=== PATIENT | female | born 1955 | race Caucasian/White ===

== ENCOUNTER 2023-02-20 14:52 | Outpatient (REF) | payer MEDICARE, MEDICAID, SELFPAY ==
--- NOTE | ~2023-02-20 | XR_ITS ---
EXAMINATION: XR KNEE, BILATERAL CLINICAL INDICATIONS: Pain. COMPARISON: Bilateral knee 02/08/2014. TECHNIQUE: 3 views each knee. FINDINGS: RIGHT KNEE: There is mild reduction in the tricompartmental joint space without bony erosive changes or loose bodies. There is no joint effusion seen. There is a small anterior superior patellar enthesophyte. LEFT KNEE: There is mild reduction in the tricompartmental joint space both knees. There is no visible acute fracture, dislocation or subluxation seen. No abnormal joint effusion seen. There are no loose bodies identified. XR/XR knee RT 3V IMPRESSION: Interval mild tricompartmental degenerative changes of both knees. No loose bodies or joint effusion suspected.
--- NOTE | ~2023-02-20 | XR_ITS ---
EXAMINATION: XR KNEE, BILATERAL CLINICAL INDICATIONS: Pain. COMPARISON: Bilateral knee 02/08/2014. TECHNIQUE: 3 views each knee. FINDINGS: RIGHT KNEE: There is mild reduction in the tricompartmental joint space without bony erosive changes or loose bodies. There is no joint effusion seen. There is a small anterior superior patellar enthesophyte. LEFT KNEE: There is mild reduction in the tricompartmental joint space both knees. There is no visible acute fracture, dislocation or subluxation seen. No abnormal joint effusion seen. There are no loose bodies identified. XR/XR knee LT 3V IMPRESSION: Interval mild tricompartmental degenerative changes of both knees. No loose bodies or joint effusion suspected.
== END 2023-02-20 14:53 | disposition home or self-care (01) ==
LOC: HO.XRAY 14:52
PROVIDERS: Visit Provider Nurse Practitioner Family
DX: M25.561 Pain in right knee (principal); M25.562 Pain in left knee; G62.9 Polyneuropathy, unspecified; M54.16 Radiculopathy, lumbar region; M47.816 Spondylosis without myelopathy or radiculopathy, lumbar region
CPT/HCPCS: 73562; 99202

== ENCOUNTER → 2023-06-23 14:05 | Outpatient (BNVA) | payer MEDICARE, MEDICAID, SELFPAY | PROVIDERS: Visit Provider Nurse Practitioner Family | DX: M25.561 Pain in right knee (principal); M25.562 Pain in left knee; M54.16 Radiculopathy, lumbar region; M47.816 Spondylosis without myelopathy or radiculopathy, lumbar region; G62.9 Polyneuropathy, unspecified | CPT/HCPCS: 99212 ==

== ENCOUNTER 2023-06-23 14:06 | Outpatient (AMB) | payer MEDICARE, MEDICAID, SELFPAY ==
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
[2023-06-23 14:12] VITALS: BP 94/58; PULSE 59; O2SAT 96; BMI 19.7
== END 2023-06-23 14:28 | disposition home or self-care (01) ==
PROVIDERS: Visit Provider Nurse Practitioner Family
DX: M25.561 Pain in right knee (principal); M25.562 Pain in left knee; G62.9 Polyneuropathy, unspecified; M54.16 Radiculopathy, lumbar region; M47.816 Spondylosis without myelopathy or radiculopathy, lumbar region
CPT/HCPCS: 99214

== ENCOUNTER 2023-10-30 11:42 | Outpatient (AMB) | payer MEDICARE, MEDICAID, SELFPAY ==
--- NOTE | 2023-10-30 11:43 | MHC.OFFVIS ---
Intake Vital Signs 10/30/23 11:47 Height 5 ft 6.5 in Weight 124 lb BMI 19.7 BP 150/75 H Blood Pressure Location Lt brachial Position Sitting Pulse 64 Pulse Source Pulse Oximeter Pulse Oximetry (%) 98 Oxygen Delivery Method Room Air Intake Visit Reasons: FU/CRPS Intake Note: Pain today 05/01 Dental Resident Required: No Accompanied by: Family/Other Allergies tramadol [From ULTRAM] Allergy (Severe, Verified 10/30/23 11:48) NAUSEA/HALLUCINATIONS aspirin [ASPIRIN] Adverse Reaction (Mild, Verified 10/30/23 11:48) ULCERS HPI HPI Comments History of Present Illness Details Patient presents today for follow up for continued left sided radicular pain. She was last seen in our office in June 2023 with plans for left L4-L5, L5-S1 transforaminal CHAIM injection but this has been scheduled with patient as of yet. Patient's family reports patient's left low back pain has been significantly aggravated after she completed physical therapy at [facility]. She presents today with significant localized pain in the projection of her left sacroiliac joint area with positive provocative testing for left SIJ pain as well as increased pain with dorsiflexion and positive SLR testing on right with pain radiation into her posterior leg more than anterior leg. She also reports chronic right anterior knee pain with walking and climbing stairs. Patient is interested to undergo diagnostic left SIJ injection prior to epidural steroid injection. She also recently updated her lumbar spine MRI at [facility] and report is noted below. Denies any fever, abdominal or groin pain, foot drop, bladder or bowel incontinence or saddle anesthesia. PRIOR: Patient presents today for follow-up for chronic low back pain with left-sided radiculopathy. She was supposed to undergo therapeutic injections for her radicular symptoms in February but had to cancel injections due to a second degree burn in the area of the injection from heating pad per family. Patient presents today significant pain rated at 8/10. Her back pain radiates to the left side of the back, into her buttocks and down into her thigh and the lower extremities anteriorly and posteriorly. She reports paresthesias in her left outer calf and mendoza areas with tingling sensations in her left foot. Patient reports this happens intermittently. Her left posterior lateral wound is healing well. Family reports patient was recently discharged from [facility]. Denies any fever, weight loss, abdominal or groin pain, foot drop, bladder or bowel incontinence or saddle anesthesia. PRIOR: Patient is a 67 years old female presents today with chronic pain throughout body from neck to both of her legs. Reports being in pain for the past 15 years years and attributes this to herniated discs, bilateral knees CRPS, and neuropathy. 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 Patient reports history of tripping and falling on sidewalk on her knees in 2009. Denies any surgeries, procedures or injections. She sees Dr. Manrique for memory issues related to early Alzheimer?s, CRPS and peripheral neuropathy. Recently completed physical therapy for 3 months at [facility] without significant pain relief but has a mild function improvement. Her pain is localized to bilateral anterior knee, without specific joint line tenderness. There is no skin discoloration, temperature changes, no allodynia or hyperalgesia. There is mild localized tenderness with palpation. Patient also has dressing over left lower leg and head and multiple healed and open wounds from scratching her skin. Her back pain is mainly axial and also radiates to her left lower extremity posteriorly and into her left foot with numbness and tingling as well as weakness in the left lower extremity and positive SLR testing. Most recent lumbar spine MRI of 2019 is noted below. Denies any bladder or bowel incontinence or saddle anesthesia. Location Bilateral knee pain, widespread body pain, neck to bottom of legs Duration Chronic since 2009 Characteristics of symptom or complaint Throbbing, stabbing, sharp, hot burning, radiating, aching, heavy, sore Aggravating or associated factors Movements, weather changes, walking, climbing stairs Relieving factors Cold and heat therapy, duloxetine, gabapentine, pregabalin Treatment Multiple medications, PT at [facility] x3 months-no relief PFSH Medical History Osteoporosis GERD (gastroesophageal reflux disease) Palpitations Mitral valve prolapse Prurigo nodularis Leukopenia Mild cognitive impairment Chronic neck pain Cervical herniated disc Lumbar herniated disc Tachycardia Complex regional pain syndrome I Insomnia Anxiety and depression Alzheimer disease CRPS (complex regional pain syndrome type I) Peripheral neuropathy Surgical History Hx of lymph node excision Hx of hand surgery H/O colonoscopy Social History Household Members Other:: sister & family Are you a primary health care administrator to a significant other at home: No Do you presently have visiting nurse or other home services: Yes ([facility] Foster [facility] Program-sister is her caregiver) Alcohol intake: never Patient Tobacco Use Status: Never used Tobacco Review of Systems Const All systems reviewed & are unremarkable except as noted in HPI and below Physical Exam General: Appears afebrile. Alert and oriented. Forgetful. Mood and affect appropriate. Follows and participates in conversation appropriately. Respiratory effort is unlabored. No cough. Able to transition from sit to stand with assistance from family member. Reports using cane at home. Back/Spine/Pelvis Other: Limit lumbar ROM due to pain with difficulty standing on heels or toes on left side due to sensation of imbalance. Antalgic gait, with limping. Demonstrates 5/5 right and 4/5 left strength of quadriceps bilaterally as well as flexion/dorsiflexion of bilateral feet against resistance. 2+ pedal pulses bilaterally. Seated straight leg rise with dorsiflexion positive on the left. Diminished patellar and trace achilles reflexes bilaterally. Facet loading test positive bilaterally. Shane?s, Gaenslen, Pelvic compression and Stinchfield tests are positive on the left. No groin pain with I/E hip rotations. Cervical Spine: cervical ROM normal and No Cervical spine tenderness Thoracic/Lumbar Spine: thoracic and lumbar spine normal to inspection, No Thoracic/lumbar spine scar(s), Lasegue's sign positive on the left and localized, pain with thoraco-lumbar ROM, paraspinal muscle tenderness, thoraco-lumbar ROM limited, No thoracic spinal tenderness and lumbar spinal tenderness at L4 and at L5 Pelvis: buttock tenderness (upper buttock into left lateral hip) on the left Sacroiliac joints: on the right nontender and on the left tender to palpation Skin Other: Left latero-posterior hip with healing burn scarring, redness noted but no erythema, infection or open wounds. Extrem Other: Bilateral knees: left knee and lower leg dressed with KEEGAN wrap dressing, clean and dry. Right lower leg with healing scabs. Localized TTP to anterior aspects of both knees. Results Reviewed Results Reviewed: XR KNEE, BILATERAL 02/20/23 COMPARISON: Bilateral knee 02/08/2014. TECHNIQUE: 3 views each knee. FINDINGS: RIGHT KNEE: There is mild reduction in the tricompartmental joint space without bony erosive changes or loose bodies. There is no joint effusion seen. There is a small anterior superior patellar enthesophyte. LEFT KNEE: There is mild reduction in the tricompartmental joint space both knees. There is no visible acute fracture, dislocation or subluxation seen. No abnormal joint effusion seen. There are no loose bodies identified. IMPRESSION: Interval mild tricompartmental degenerative changes of both knees. No loose bodies or joint effusion suspected. MR LUMBAR SPINE WITHOUT AND WITH CONTRAST 07/29/2019 CLINICAL INFORMATION: Chronic lower back pain. Bilateral lower extremity pain and weakness reported. Numbness. Chronic symptoms. No history of spinal surgery. TECHNICAL INFORMATION: Sagittal T1-weighted, sagittal T2-weighted, sagittal STIR lumbar spine imaging. Axial T1 and axial T2-weighted imaging of the lumbar spine. Postgadolinium T1-weighted lumbar spine imaging. 14 mL of intravenous Dotarem were administered. Imaging performed in the open magnet operating at 1.2 Perla magnetic field strength. INTERPRETATION: There is degenerative decreased water content of lower thoracic and lumbar intervertebral discs. The conus medullaris is normal. There are no lumbar vertebral body compression fractures. There is straightening of the lumbar lordotic curvature. T12-L1 level: Small posterior disc bulge with mild compression of the thecal sac. Mild degenerative narrowing of neural foramina. L1-L2 level: Minimal posterior disc bulge. Mild facet arthropathy. Mild neural foraminal narrowing. L2-L3 through L5-S1 intervertebral disc spaces demonstrate moderate to severe loss of height. L2-L3 level: Small to moderate broad-based posterior disc bulge with mild compression of the thecal sac. Mild facet arthropathy. Mild to moderate neural foraminal narrowing. L3-L4 level: Small posterior and right paramedian broad-based intervertebral disc herniation with slight caudad extrusion of herniated disc material within the right ventral epidural tissues to the level of superior L4 vertebral endplate with mild to moderate compression of the thecal sac. Mild degenerative central spinal canal stenosis. Moderate bilateral neural foraminal narrowing with compression of exiting right L3 nerve root and encroachment upon exiting left L3 nerve root. L4-L5 level: Residual disc demonstrates small broad-based posterior disc protrusion with mild to moderate impression upon the thecal sac. Protruding disc extends into the inferior aspect of the neural foramina. Moderate facet arthropathy with mild to moderate central spinal canal stenosis. Moderate left lateral recess narrowing with encroachment upon proximal left L5 nerve root sleeve. Severe left neural foraminal narrowing with encroachment upon exiting left L4 nerve root. Moderate right neural foraminal narrowing. L5-S1 level: Residual disc demonstrates moderate broad-based posterior disc protrusion with mild compression of the thecal sac. Moderate severe facet arthropathy with mild central spinal canal stenosis. Moderate narrowing of lateral recesses with encroachment upon proximal S1 nerve root sleeves. Severe bilateral neural foraminal degenerative narrowing with bilateral compression of exiting L5 nerve roots. Note is made of minimal ventral enhancing epidural scarring at L2-L3 through L5-S1 levels. No abnormal enhancement seen within the lumbar thecal sac. No evidence of adhesive lumbar arachnoiditis. Note is made of mild reactive-degenerative bone marrow edema of L3-S1 vertebral bodies. There is mild reactive-degenerative bone marrow edema of right L4 pedicle and bilateral L5 pedicles. No evidence of lumbar spondylolysis. CONCLUSION: Moderate lumbar spondylosis with multilevel loss of intervertebral disc space height, moderate multilevel facet arthropathy with multilevel mild central spinal canal stenosis and neural foraminal narrowing. L5-S1 level: Moderate posterior disc protrusion. Mild central spinal canal stenosis. Moderate narrowing of lateral recesses. Severe neural foraminal narrowing. L4-5 level: Small posterior disc protrusion which extends into the inferior aspect of the neural foramina. Mild to moderate central spinal canal stenosis. Moderate left lateral recess narrowing. Severe left and moderate right neural foraminal narrowing. L3-L4 level: Small posterior and right paramedian broad-based posterior intervertebral disc herniation with slight paramedian caudally extrusion of disc material with mild compression of the ventral thecal sac. Mild degenerative central spinal canal stenosis. Moderate neural foraminal narrowing. Additional findings, as described. MR SPINE LUMBAR without CONTRAST 09/21/23 at [facility] INDICATION: Severe left buttock pain for 8 months. Status post physical therapy. History of HNP in back. TECHNIQUE: Unenhanced multiplanar, multisequence MR imaging of the lumbar spine. COMPARISON: MR L-Spine 07/29/2019. FINDINGS: There is a mild lower lumbar levoscoliotic curvature. No findings of lumbar fracture or listhesis. Vertebral bodies are of normal height. Endplate Modic type changes with loss of intervertebral disc space height throughout and marginal osteophyte formation. Lumbar facet arthrosis. Conus and cauda equina of normal appearance. No acute paraspinal abnormality identified. Examination through the L1-L2 intervertebral level revealing mild facet arthrosis. Prominence of ligamentum flavum. Posterior disc osteophyte. Mild central stenosis. Bilateral lateral recess encroachment. No significant foraminal narrowing. Examination through the L2-L3 intervertebral level revealing facet arthrosis. Prominence of ligamentum flavum. Posterior disc osteophyte. Mild central stenosis. Bilateral lateral recess encroachment. Moderate RIGHT foraminal narrowing. Mild LEFT foraminal narrowing. Examination through the L3-L4 intervertebral level revealing facet arthrosis. Prominence of ligamentum flavum. Posterior disc osteophyte with a RIGHT paracentral predominance. Mild central stenosis. Bilateral lateral recess encroachment. Moderate to severe bilateral foraminal narrowing. Examination through the L4-L5 intervertebral level revealing facet arthrosis. Prominence of ligament flavum and posterior disc osteophyte. Mild central stenosis. Bilateral lateral recess encroachment. Moderate RIGHT foraminal narrowing. Moderate to severe LEFT foraminal narrowing. Examination through the L5-S1 intervertebral level facet arthrosis. Mild prominence of ligamentum flavum. Small posterior disc osteophyte. No significant central stenosis. Bilateral lateral recess encroachment. Severe bilateral foraminal narrowing. IMPRESSION: Lumbar spondylotic changes and facet arthrosis. No findings of fracture or significant listhesis. Varying degrees of relative chronic appearing central stenosis and foraminal narrowing as detailed above. No findings to suggest an acute process. No priors are available for comparison. Assessment & Plan Assessment & Plan (1) Bilateral knee pain: Code(s): M25.561 - Pain in right knee; M25.562 - Pain in left knee (2) Lumbar radiculopathy: Code(s): M54.16 - Radiculopathy, lumbar region (3) Lumbar spondylosis: Code(s): M47.816 - Spondylosis without myelopathy or radiculopathy, lumbar region (4) Sacroiliac joint pain: Code(s): M53.3 - Sacrococcygeal disorders, not elsewhere classified Plan Schedule Left diagnostic sacroiliac joint injection with local and fluoroscopy for left SIJ pain. If no relief, will proceed with Left L4-L5, L5-S1 TFESI with sedation and fluoroscopy for ongoing left sided radicular pain. Recent lumbar spine MRI results reviewed with patient and her family today. All questions and concerns have been answered and patient agreed with the plan. Follow up after injections and sooner if needed. Anticoagulation: Patient not on anticoagulant Justification for interventional therapy: ? Patient with average pain > 6/10 ? Patient has exhausted conservative therapy, Tylenol, physical therapy at [facility] ? Patient continuing home exercise program The risks, consequences, alternatives, and benefits of various treatment options were discussed with the patient in great detail, including conservative management, injections and procedures. Coding Level of Care Code Est Pt Level 4 (05315) Diagnoses Bilateral knee pain M25.561; M25.562 Lumbar radiculopathy M54.16 Lumbar spondylosis M47.816 Sacroiliac joint pain M53.3
[2023-10-30 11:47] VITALS: BP 150/75; PULSE 64; O2SAT 98; BMI 19.7
== END 2023-10-30 12:12 | disposition home or self-care (01) ==
PROVIDERS: Visit Provider Nurse Practitioner Family
DX: M25.561 Pain in right knee (principal); M25.562 Pain in left knee; M54.16 Radiculopathy, lumbar region; M47.816 Spondylosis without myelopathy or radiculopathy, lumbar region; M53.3 Sacrococcygeal disorders, not elsewhere classified
CPT/HCPCS: 99214

== ENCOUNTER → 2023-10-30 11:42 | Outpatient (BNVA) | payer MEDICARE, MEDICAID, SELFPAY | PROVIDERS: Visit Provider Nurse Practitioner Family | DX: M25.561 Pain in right knee (principal); M25.562 Pain in left knee; M54.16 Radiculopathy, lumbar region; M47.816 Spondylosis without myelopathy or radiculopathy, lumbar region; M53.3 Sacrococcygeal disorders, not elsewhere classified | CPT/HCPCS: 99212 ==

== ENCOUNTER 2023-11-14 06:17 | Outpatient (REF) | payer MEDICARE, MEDICAID, SELFPAY ==
--- NOTE | ~2023-11-14 | FL_ITS ---
EXAMINATION: XR FLUOROSCOPY WITH IMAGES CLINICAL INFORMATION: Sacrococcygeal disorders, left side. COMPARISON: None available. TECHNIQUE: Fluoroscopy Supervised By: Dasia Tomlin APRN CNP. Fluoroscopy Time: 0.1 min. Cumulative Dose: 1.03 mGy. DAP: 0.0179 mGy cm2. Images: 1. FINDINGS: Single image demonstrates a needle near the mid SI joint with contrast surrounding the region. FL/FL guidance in treatment room IMPRESSION: Fluoroscopy provided for pain management procedure.
== END 2023-11-14 06:18 | disposition home or self-care (01) ==
LOC: CF 06:17
PROVIDERS: Visit Provider Anesthesiology
DX: M53.3 Sacrococcygeal disorders, not elsewhere classified (principal); M54.16 Radiculopathy, lumbar region; M47.816 Spondylosis without myelopathy or radiculopathy, lumbar region; M25.561 Pain in right knee; M25.562 Pain in left knee
CPT/HCPCS: 27096; J2795; Q9967

== ENCOUNTER 2023-11-14 14:14 | Outpatient (AMB) | payer MEDICARE, MEDICAID, SELFPAY ==
--- NOTE | 2023-11-14 14:26 | A.OFFVIS_ITS ---
Intake Vital Signs 11/14/23 15:47 11/14/23 15:47 Height 5 ft 6.5 in 5 ft 6.5 in Weight 124 lb 124 lb BMI 19.7 19.7 BP 92/58 L 96/56 L Blood Pressure Location Lt brachial Lt brachial Position Sitting Sitting Respiration 12 12 Pulse 60 60 Pulse Source Pulse Oximeter Pulse Oximeter Pulse Oximetry (%) 94 100 Oxygen Delivery Method Room Air Room Air Comment pre-op post-op Intake Visit Reasons: LEFT DIAGNOSTIC SIJ INJECTION Allergies tramadol [From ULTRAM] Allergy (Severe, Verified 11/14/23 15:48) NAUSEA/HALLUCINATIONS aspirin [ASPIRIN] Adverse Reaction (Mild, Verified 11/14/23 15:48) ULCERS PFSH Medical History Osteoporosis GERD (gastroesophageal reflux disease) Palpitations Mitral valve prolapse Prurigo nodularis Leukopenia Mild cognitive impairment Chronic neck pain Cervical herniated disc Lumbar herniated disc Tachycardia Complex regional pain syndrome I Insomnia Anxiety and depression Alzheimer disease CRPS (complex regional pain syndrome type I) Peripheral neuropathy Surgical History Hx of lymph node excision Hx of hand surgery H/O colonoscopy Social History Household Members Other:: sister & family Are you a primary workforce investment act career manager to a significant other at home: No Do you presently have visiting nurse or other home services: Yes (Adult Foster Care Program-sister is her caregiver) Alcohol intake: never Patient Tobacco Use Status: Never used Tobacco Physical Exam Vital Signs: Last Vital Signs Pulse 60 11/14/23 15:47 Resp 12 11/14/23 15:47 BP 96/56 L 11/14/23 15:47 Pulse Ox 100 11/14/23 15:47 Oxygen Delivery Method Room Air 11/14/23 15:47 BMI result Body Mass Index 19.7 Assessment & Plan Assessment & Plan (1) Bilateral knee pain: Code(s): M25.561 - Pain in right knee; M25.562 - Pain in left knee (2) Lumbar radiculopathy: Code(s): M54.16 - Radiculopathy, lumbar region Plan: Left diagnostic Sacroiliac joint injection Informed consent was explained thoroughly to the patient.? All questions about benefits and risks for the procedure were answered. Patient came to the operating room and was positioned prone on the operating table with the pillow under the pelvis.? The lower back and buttocks of the patient were prepped with ChloraPrep prepped and draped with sterile utility towels.? Sterilely draped C-arm was brought over the operating field and sq picture of patient's pelvis was demonstrated on the screen.? For the left joint tilting C-arm contralateral to the site of the joint the most posterior portion of the joints was superimposed with anterior silhouette of the joint.? Skin was injected in the projection of the joint slightly medial to the location of the joint with 25 gauge 1/2 inch needle using local lidocaine 2% . After that 22 gauge 3 and 1/2 inch needle was driven to the left joint in tunnel vision fashion.? When needle entered the joint capsule injection of the contrast was performed demonstrating intra-articular and minimally periarticular spread of the contrast.? After that 5 cc. of ropivacaine 0.5% was injected into each joint.? Upon completion of the injections the needles were removed . Sterile dressing was applied.? Upon completion of the injection patient was taken outside of the operating room to the recovery room where recovered uneventfully. (3) Lumbar spondylosis: Code(s): M47.816 - Spondylosis without myelopathy or radiculopathy, lumbar region (4) Sacroiliac joint pain: Code(s): M53.3 - Sacrococcygeal disorders, not elsewhere classified Plan Schedule Left diagnostic sacroiliac joint injection with local and fluoroscopy for left SIJ pain. If no relief, will proceed with Left L4-L5, L5-S1 TFESI with sedation and fluoroscopy for ongoing left sided radicular pain. Recent lumbar spine MRI results reviewed with patient and her family today. All questions and concerns have been answered and patient agreed with the plan. Follow up after injections and sooner if needed. Anticoagulation: Patient not on anticoagulant Justification for interventional therapy: ? Patient with average pain > 6/10 ? Patient has exhausted conservative therapy, Tylenol, physical therapy at [facility] ? Patient continuing home exercise program The risks, consequences, alternatives, and benefits of various treatment options were discussed with the patient in great detail, including conservative management, injections and procedures. Orders: Orders FL guidance in treatment room 11/14/23 M53.3 - Sacrococcygeal disorders, not elsewhere classified Coding Level of Care Code Procedure Only Diagnoses Bilateral knee pain M25.561; M25.562 Lumbar radiculopathy M54.16 Lumbar spondylosis M47.816 Sacroiliac joint pain M53.3
[2023-11-14 15:47] VITALS: BP 92/58; BP 96/56; PULSE 60; RESP 12; O2SAT 100; O2SAT 94; BMI 19.7
== END 2023-11-14 15:10 | disposition home or self-care (01) ==
LOC: HO.PMCPRC 14:14
PROVIDERS: Visit Provider Anesthesiology
DX: M53.3 Sacrococcygeal disorders, not elsewhere classified (principal); M25.561 Pain in right knee; M25.562 Pain in left knee; M54.16 Radiculopathy, lumbar region; M47.816 Spondylosis without myelopathy or radiculopathy, lumbar region
CPT/HCPCS: 27096

== ENCOUNTER 2023-11-21 13:01 | Outpatient (AMB) | payer MEDICARE, MEDICAID, SELFPAY ==
--- NOTE | 2023-11-21 13:03 | MHC.OFFVIS ---
Intake Vital Signs 11/21/23 13:07 Height 5 ft 6.5 in Weight 125 lb 3 oz BMI 19.9 BP 93/51 L Blood Pressure Location Lt brachial Position Sitting Pulse 80 Pulse Source Pulse Oximeter Pulse Oximetry (%) 97 Oxygen Delivery Method Room Air Intake Visit Reasons: LEFT DIAGNOSTIC SIJ INJECTION/11/14/23 Intake Note: Pain today 06/01 Human Resources Manager Required: No Accompanied by: Family/Other Allergies tramadol [From ULTRAM] Allergy (Severe, Verified 11/21/23 13:08) NAUSEA/HALLUCINATIONS aspirin [ASPIRIN] Adverse Reaction (Mild, Verified 11/21/23 13:08) ULCERS HPI HPI Comments History of Present Illness Details Patient presents today to assess response to Left Diagnostic Sacroiliac Joint Injection on 11/14/[address] Cho. Patient reports no pain relief following the procedure. Patient reports chronic left buttock pain and reports soreness in the vicinity of the left piriformis muscle. She reports this started last January 2023 after intense physical therapy. Family reports patient was in basiline pain after procedure and had no relief with SIJ injection. She is sitting on cushion relief pad and offloading her left buttock by crossing over her left leg over right leg. Family reports patient spends significant time at home sitting and minimal ambulation due to chronic low back and bilateral knee pain. We will proceed with piriformis injection as next steps. Denies any recent cough, cold, infection, fever, any significant changes in her medical history, medications or recent hospitalizations. Past Procedures: 11/14/23: Left Diagnostic Sacroiliac Joint Injection- no pain relief PRIOR: Patient presents today for follow up for continued left sided radicular pain. She was last seen in our office in June 2023 with plans for left L4-L5, L5-S1 transforaminal CHAIM injection but this has been scheduled with patient as of yet. Patient's family reports patient's left low back pain has been significantly aggravated after she completed physical therapy at [facility]. She presents today with significant localized pain in the projection of her left sacroiliac joint area with positive provocative testing for left SIJ pain as well as increased pain with dorsiflexion and positive SLR testing on right with pain radiation into her posterior leg more than anterior leg. She also reports chronic right anterior knee pain with walking and climbing stairs. Patient is interested to undergo diagnostic left SIJ injection prior to epidural steroid injection. She also recently updated her lumbar spine MRI at [facility] and report is noted below. Denies any fever, abdominal or groin pain, foot drop, bladder or bowel incontinence or saddle anesthesia. PRIOR: Patient presents today for follow-up for chronic low back pain with left-sided radiculopathy. She was supposed to undergo therapeutic injections for her radicular symptoms in February but had to cancel injections due to a second degree burn in the area of the injection from heating pad per family. Patient presents today significant pain rated at 8/10. Her back pain radiates to the left side of the back, into her buttocks and down into her thigh and the lower extremities anteriorly and posteriorly. She reports paresthesias in her left outer calf and mendoza areas with tingling sensations in her left foot. Patient reports this happens intermittently. Her left posterior lateral wound is healing well. Family reports patient was recently discharged from [facility]. Denies any fever, weight loss, abdominal or groin pain, foot drop, bladder or bowel incontinence or saddle anesthesia. PRIOR: Patient is a 67 years old female presents today with chronic pain throughout body from neck to both of her legs. Reports being in pain for the past 15 years years and attributes this to herniated discs, bilateral knees CRPS, and neuropathy. 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 Patient reports history of tripping and falling on sidewalk on her knees in 2009. Denies any surgeries, procedures or injections. She sees Dr. Manrique for memory issues related to early Alzheimer?s, CRPS and peripheral neuropathy. Recently completed physical therapy for 3 months at [facility] without significant pain relief but has a mild function improvement. Her pain is localized to bilateral anterior knee, without specific joint line tenderness. There is no skin discoloration, temperature changes, no allodynia or hyperalgesia. There is mild localized tenderness with palpation. Patient also has dressing over left lower leg and head and multiple healed and open wounds from scratching her skin. Her back pain is mainly axial and also radiates to her left lower extremity posteriorly and into her left foot with numbness and tingling as well as weakness in the left lower extremity and positive SLR testing. Most recent lumbar spine MRI of 2019 is noted below. Denies any bladder or bowel incontinence or saddle anesthesia. Location Bilateral knee pain, widespread body pain, neck to bottom of legs Duration Chronic since 2009 Characteristics of symptom or complaint Throbbing, stabbing, sharp, hot burning, radiating, aching, heavy, sore Aggravating or associated factors Movements, weather changes, walking, climbing stairs Relieving factors Cold and heat therapy, duloxetine, gabapentine, pregabalin Treatment Multiple medications, PT at [facility] x3 months-no relief PFSH Medical History Osteoporosis GERD (gastroesophageal reflux disease) Palpitations Mitral valve prolapse Prurigo nodularis Leukopenia Mild cognitive impairment Chronic neck pain Cervical herniated disc Lumbar herniated disc Tachycardia Complex regional pain syndrome I Insomnia Anxiety and depression Alzheimer disease CRPS (complex regional pain syndrome type I) Peripheral neuropathy Surgical History Hx of lymph node excision Hx of hand surgery H/O colonoscopy Social History Household Members Other:: sister & family Are you a primary personal care assistant to a significant other at home: No Do you presently have visiting nurse or other home services: Yes ([facility]-sister is her caregiver) Alcohol intake: never Patient Tobacco Use Status: Never used Tobacco Review of Systems Const All systems reviewed & are unremarkable except as noted in HPI and below Reports as per HPI, Denies body aches, Denies chills, Denies fever(s), Denies frequent falls, Denies headache(s), Denies malaise, Denies weakness and Denies weight loss ENT Denies vertigo, Denies headache(s), Denies neck pain and Denies sore throat Card Denies chest pain with activity, Denies syncope, Denies irregular heart rhythm, Denies lightheadedness and Denies dyspnea Resp Denies cough and Denies dyspnea GI Denies abdominal pain, Denies fecal incontinence and Denies nausea Reports urinary incontinence Musc Reports as per HPI, Reports back pain, Denies myalgias, Reports arthralgias, Denies neck pain, Reports numbness, Reports stiffness and Reports tingling Neuro Denies vertigo, Denies syncope, Denies frequent falls, Denies headache(s), Reports numbness, Reports tingling and Denies weakness Physical Exam Vital Signs: Last Vital Signs Pulse 80 11/21/23 13:07 BP 93/51 L 11/21/23 13:07 Pulse Ox 97 11/21/23 13:07 Oxygen Delivery Method Room Air 11/21/23 13:07 BMI result Body Mass Index 19.9 General: Appears afebrile. Alert and oriented. Forgetful. Mood and affect appropriate. Follows and participates in conversation appropriately. Respiratory effort is unlabored. No cough. Able to transition from sit to stand with assistance from family member. Uses cane with ambulation. Back/Spine/Pelvis Other: Limit lumbar ROM due to pain with difficulty standing on heels or toes on left side due to pain. Patient is sitting with left leg crossing over right leg and offloading her left buttock and uses cushion pillow for sitting. Mild tenderness to palpation in the left buttock. Reports soreness in the vicinity of the left piriformis muscle. Demonstrates 5/5 right and 4/5 left strength of quadriceps bilaterally as well as flexion/dorsiflexion of bilateral feet against resistance. 2+ pedal pulses bilaterally. Seated straight leg rise with dorsiflexion positive on the left. Diminished patellar and trace achilles reflexes bilaterally. Facet loading test positive bilaterally. No groin pain with I/E hip rotations. Cervical Spine: cervical ROM normal and No Cervical spine tenderness Thoracic/Lumbar Spine: thoracic and lumbar spine normal to inspection, No Thoracic/lumbar spine scar(s), Lasegue's sign positive on the left and localized, pain with thoraco-lumbar ROM, paraspinal muscle tenderness, thoraco-lumbar ROM limited, No thoracic spinal tenderness and lumbar spinal tenderness at L4 and at L5 Pelvis: buttock tenderness (upper buttock into left lateral hip) on the left Sacroiliac joints: on the right nontender and on the left (+Shane's test) tender to palpation Results Reviewed Results Reviewed: XR KNEE, BILATERAL 02/20/23 COMPARISON: Bilateral knee 02/08/2014. TECHNIQUE: 3 views each knee. FINDINGS: RIGHT KNEE: There is mild reduction in the tricompartmental joint space without bony erosive changes or loose bodies. There is no joint effusion seen. There is a small anterior superior patellar enthesophyte. LEFT KNEE: There is mild reduction in the tricompartmental joint space both knees. There is no visible acute fracture, dislocation or subluxation seen. No abnormal joint effusion seen. There are no loose bodies identified. IMPRESSION: Interval mild tricompartmental degenerative changes of both knees. No loose bodies or joint effusion suspected. MR LUMBAR SPINE WITHOUT AND WITH CONTRAST 07/29/2019 CLINICAL INFORMATION: Chronic lower back pain. Bilateral lower extremity pain and weakness reported. Numbness. Chronic symptoms. No history of spinal surgery. TECHNICAL INFORMATION: Sagittal T1-weighted, sagittal T2-weighted, sagittal STIR lumbar spine imaging. Axial T1 and axial T2-weighted imaging of the lumbar spine. Postgadolinium T1-weighted lumbar spine imaging. 14 mL of intravenous Dotarem were administered. Imaging performed in the open magnet operating at 1.2 Perla magnetic field strength. INTERPRETATION: There is degenerative decreased water content of lower thoracic and lumbar intervertebral discs. The conus medullaris is normal. There are no lumbar vertebral body compression fractures. There is straightening of the lumbar lordotic curvature. T12-L1 level: Small posterior disc bulge with mild compression of the thecal sac. Mild degenerative narrowing of neural foramina. L1-L2 level: Minimal posterior disc bulge. Mild facet arthropathy. Mild neural foraminal narrowing. L2-L3 through L5-S1 intervertebral disc spaces demonstrate moderate to severe loss of height. L2-L3 level: Small to moderate broad-based posterior disc bulge with mild compression of the thecal sac. Mild facet arthropathy. Mild to moderate neural foraminal narrowing. L3-L4 level: Small posterior and right paramedian broad-based intervertebral disc herniation with slight caudad extrusion of herniated disc material within the right ventral epidural tissues to the level of superior L4 vertebral endplate with mild to moderate compression of the thecal sac. Mild degenerative central spinal canal stenosis. Moderate bilateral neural foraminal narrowing with compression of exiting right L3 nerve root and encroachment upon exiting left L3 nerve root. L4-L5 level: Residual disc demonstrates small broad-based posterior disc protrusion with mild to moderate impression upon the thecal sac. Protruding disc extends into the inferior aspect of the neural foramina. Moderate facet arthropathy with mild to moderate central spinal canal stenosis. Moderate left lateral recess narrowing with encroachment upon proximal left L5 nerve root sleeve. Severe left neural foraminal narrowing with encroachment upon exiting left L4 nerve root. Moderate right neural foraminal narrowing. L5-S1 level: Residual disc demonstrates moderate broad-based posterior disc protrusion with mild compression of the thecal sac. Moderate severe facet arthropathy with mild central spinal canal stenosis. Moderate narrowing of lateral recesses with encroachment upon proximal S1 nerve root sleeves. Severe bilateral neural foraminal degenerative narrowing with bilateral compression of exiting L5 nerve roots. Note is made of minimal ventral enhancing epidural scarring at L2-L3 through L5-S1 levels. No abnormal enhancement seen within the lumbar thecal sac. No evidence of adhesive lumbar arachnoiditis. Note is made of mild reactive-degenerative bone marrow edema of L3-S1 vertebral bodies. There is mild reactive-degenerative bone marrow edema of right L4 pedicle and bilateral L5 pedicles. No evidence of lumbar spondylolysis. CONCLUSION: Moderate lumbar spondylosis with multilevel loss of intervertebral disc space height, moderate multilevel facet arthropathy with multilevel mild central spinal canal stenosis and neural foraminal narrowing. L5-S1 level: Moderate posterior disc protrusion. Mild central spinal canal stenosis. Moderate narrowing of lateral recesses. Severe neural foraminal narrowing. L4-5 level: Small posterior disc protrusion which extends into the inferior aspect of the neural foramina. Mild to moderate central spinal canal stenosis. Moderate left lateral recess narrowing. Severe left and moderate right neural foraminal narrowing. L3-L4 level: Small posterior and right paramedian broad-based posterior intervertebral disc herniation with slight paramedian caudally extrusion of disc material with mild compression of the ventral thecal sac. Mild degenerative central spinal canal stenosis. Moderate neural foraminal narrowing. Additional findings, as described. MR SPINE LUMBAR without CONTRAST 09/21/23 at [facility] INDICATION: Severe left buttock pain for 8 months. Status post physical therapy. History of HNP in back. TECHNIQUE: Unenhanced multiplanar, multisequence MR imaging of the lumbar spine. COMPARISON: MR L-Spine 07/29/2019. FINDINGS: There is a mild lower lumbar levoscoliotic curvature. No findings of lumbar fracture or listhesis. Vertebral bodies are of normal height. Endplate Modic type changes with loss of intervertebral disc space height throughout and marginal osteophyte formation. Lumbar facet arthrosis. Conus and cauda equina of normal appearance. No acute paraspinal abnormality identified. Examination through the L1-L2 intervertebral level revealing mild facet arthrosis. Prominence of ligamentum flavum. Posterior disc osteophyte. Mild central stenosis. Bilateral lateral recess encroachment. No significant foraminal narrowing. Examination through the L2-L3 intervertebral level revealing facet arthrosis. Prominence of ligamentum flavum. Posterior disc osteophyte. Mild central stenosis. Bilateral lateral recess encroachment. Moderate RIGHT foraminal narrowing. Mild LEFT foraminal narrowing. Examination through the L3-L4 intervertebral level revealing facet arthrosis. Prominence of ligamentum flavum. Posterior disc osteophyte with a RIGHT paracentral predominance. Mild central stenosis. Bilateral lateral recess encroachment. Moderate to severe bilateral foraminal narrowing. Examination through the L4-L5 intervertebral level revealing facet arthrosis. Prominence of ligament flavum and posterior disc osteophyte. Mild central stenosis. Bilateral lateral recess encroachment. Moderate RIGHT foraminal narrowing. Moderate to severe LEFT foraminal narrowing. Examination through the L5-S1 intervertebral level facet arthrosis. Mild prominence of ligamentum flavum. Small posterior disc osteophyte. No significant central stenosis. Bilateral lateral recess encroachment. Severe bilateral foraminal narrowing. IMPRESSION: Lumbar spondylotic changes and facet arthrosis. No findings of fracture or significant listhesis. Varying degrees of relative chronic appearing central stenosis and foraminal narrowing as detailed above. No findings to suggest an acute process. No priors are available for comparison. Assessment & Plan Assessment & Plan (1) Lumbar radiculopathy: Code(s): M54.16 - Radiculopathy, lumbar region (2) Piriformis syndrome of left side: Code(s): G57.02 - Lesion of sciatic nerve, left lower limb (3) Lumbar spondylosis: Code(s): M47.816 - Spondylosis without myelopathy or radiculopathy, lumbar region (4) Sacroiliac joint pain: Code(s): M53.3 - Sacrococcygeal disorders, not elsewhere classified Plan Schedule left diagnostic piriformis injection with local and US guidance. If no relief, will proceed with left diagnostic cluneal nerve injection for persistent left buttock pain unrelieved with cushion relief support, Tylenol, pregabalin and gabapentin. Patient also has left sided radicular pain. We will re-assess her low back and radicular symptoms after piriformis injection. Short script sent for oxycodone, side effects and precautions discussed with patient and her daughter who lives with patient and takes care of patient. Patient instructed to use half tab at the time for moderate-severe pain only. Discussed with the patient and family the risks associated with her other medications that have sedative effects and opioid use. Patient and family are aware and verbalized an agreement to take medications at least two hours apart. All questions and concerns have been answered and patient agreed with the plan. Follow up after injections and sooner if needed. Anticoagulation: Patient is not on anticoagulant Justification for interventional therapy: ? Patient with average pain > 6/10 ? Patient has exhausted conservative therapy, oral medication, physical therapy at [facility] ? Patient continuing home exercise program The risks, consequences, alternatives, and benefits of various treatment options were discussed with the patient in great detail, including conservative management, injections and procedures. Medications: New oxycodone Partial Fill upon patient request. 5 mg PO BID 7 days PRN 14 tabs 0RF pain G57.02 - Lesion of sciatic nerve, left lower limb, M54.16 - Radiculopathy, lumbar region Coding Level of Care Code Est Pt Level 4 (70657) Diagnoses Lumbar radiculopathy M54.16 Piriformis syndrome of left side G57.02 Lumbar spondylosis M47.816 Sacroiliac joint pain M53.3
[2023-11-21 13:07] VITALS: BP 93/51; PULSE 80; O2SAT 97; BMI 19.9
== END 2023-11-21 13:41 | disposition home or self-care (01) ==
PROVIDERS: Visit Provider Nurse Practitioner Family
DX: G57.02 Lesion of sciatic nerve, left lower limb (principal); M47.26 Other spondylosis with radiculopathy, lumbar region; M53.3 Sacrococcygeal disorders, not elsewhere classified
CPT/HCPCS: 99214

== ENCOUNTER → 2023-11-21 13:01 | Outpatient (BNVA) | payer MEDICARE, MEDICAID, SELFPAY | PROVIDERS: Visit Provider Nurse Practitioner Family | DX: M47.26 Other spondylosis with radiculopathy, lumbar region (principal); G57.02 Lesion of sciatic nerve, left lower limb; M53.3 Sacrococcygeal disorders, not elsewhere classified | CPT/HCPCS: 99212 ==

== ENCOUNTER 2023-12-29 10:27 | Outpatient (AMB) | payer MEDICARE, MEDICAID, SELFPAY ==
--- NOTE | 2023-12-29 10:32 | MHC.OFFVIS ---
Intake Vital Signs 12/29/23 10:33 Height 5 ft 6.5 in BP 101/59 L Blood Pressure Location Lt brachial Position Sitting Respiration 12 Pulse 61 Pulse Source Pulse Oximeter Intake Visit Reasons: Left Dx pirformis inj Allergies tramadol [From ULTRAM] Allergy (Severe, Verified 01/01/24 15:48) NAUSEA/HALLUCINATIONS aspirin [ASPIRIN] Adverse Reaction (Mild, Verified 01/01/24 15:48) ULCERS Medication List - Last Reconciled 12/29/23 by Meera Obando LPN acetaminophen 650 mg PO TID PRN cholecalciferol (vitamin D3) (Vitamin D3) 25 mcg PO DAILY cyanocobalamin (vitamin B-12) (Vitamin B-12) 1,000 mcg PO DAILY docusate sodium 100 mg PO BID donepezil 10 mg PO BEDTIME duloxetine 60 mg PO DAILY ferrous sulfate 325 mg PO DAILY fluticasone propionate 50 mcg/actuation 1 spray intranasal DAILY gabapentin 900 mg PO TID levocetirizine 5 mg PO QPM lidocaine 5% (Lidoderm) 1 patch topical DAILY linaclotide (Linzess) 290 mcg PO DAILY melatonin 5 mg PO BEDTIME memantine mg PO metoprolol tartrate 50 mg PO BID montelukast 10 mg PO BEDTIME omeprazole 20 mg PO DAILY oxcarbazepine 150 mg PO DAILY oxycodone 5 mg PO BID PRN 7 days polyethylene glycol 3350 (Miralax) 17 grams PO DAILY pregabalin 100 mg PO QID quetiapine ER 200 mg PO BEDTIME suvorexant (Belsomra) 15 mg PO BEDTIME PRN trazodone 100 mg PO BEDTIME HPI Left Dx pirformis inj HPI Details 68-year-old female who presents today for a left diagnostic piriformis injection. Denies any recent cough, cold, infection, fever or other significant changes in medical history since last office visit. [facility] Medical History Osteoporosis GERD (gastroesophageal reflux disease) Palpitations Mitral valve prolapse Prurigo nodularis Leukopenia Mild cognitive impairment Chronic neck pain Cervical herniated disc Lumbar herniated disc Tachycardia Complex regional pain syndrome I Insomnia Anxiety and depression Alzheimer disease CRPS (complex regional pain syndrome type I) Peripheral neuropathy Surgical History Hx of lymph node excision Hx of hand surgery H/O colonoscopy Social History Household Members Other:: sister & family Are you a primary after school caregiver to a significant other at home: No Do you presently have visiting nurse or other home services: Yes ([facility]-sister is her caregiver) Alcohol intake: never Patient Tobacco Use Status: Never used Tobacco Review of Systems Const All systems reviewed & are unremarkable except as noted in HPI and below Physical Exam Vital Signs: Last Vital Signs Pulse 61 12/29/23 10:33 Resp 12 12/29/23 10:33 BP 101/59 L 12/29/23 10:33 General: Appears afebrile. Alert and oriented. Mood and affect appropriate. Follows and participates in conversation appropriately. Respiratory effort is unlabored. Able to transition from sit to stand unassisted. Ambulates with bilaterally normal heel strike and toe off. Office Procedures Joint Injection/Drain Joint Injection/Drain Details: Left diagnostic piriformis injection, US guided. The procedure, its benefits, and its risks were explained and written informed consent was obtained from the patient. Immediately prior to starting the procedure, a time-out safety check was conducted. The patient's identification, procedure name, procedure site, and procedure laterality were confirmed with the patient. Using ultrasound, the sciatic nerve, the gluteus medius and the piriformis muscles were identified. A 22 gauge needle was advanced under ultrasound guidance to the performance muscle and 8 mL of ropivacaine 0.25% was administered intramuscularly as well as in the fascial plane above and below the muscle. The needles were removed, skin cleansed and a sterile bandage was applied. The patient tolerated the procedure well and no complications were encountered. Following the procedure the patient's vital signs were stable. The patient was discharged home in good condition with post-procedural instructions. Time Out: Immediately prior to the procedure, the following was verbally confirmed that there is a signed consent form and that the correct patient, planned procedure, site and side are consistent with documentation and that necessary equipment and/or blood products are available prior to the start of the case. Complications: none EBL: <5 cc Note: An ultrasound image of the injection was taken and stored in the permanent record. Coding 88917 - Sternocleidomastoid/Piriformis (left, ultrasound guided) Procedure code (CPT) selection complete Results Reviewed Results Reviewed: No imaging is available for review. Assessment & Plan Assessment & Plan (1) Tendonitis of buttock: Code(s): M76.00 - Gluteal tendinitis, unspecified hip (2) Left buttock pain: Code(s): M79.18 - Myalgia, other site (3) Piriformis syndrome of left side: Code(s): G57.02 - Lesion of sciatic nerve, left lower limb Plan Patient is status post left diagnostic piriformis injection, US guided. Patient tolerated procedure well and was discharged home in stable condition with discharge instructions. All questions were answered. She was counseled regarding watching for leg weakness secondary to sciatic nerve block. The patient will follow-up to access the response from the diagnostic injection. If it is helpful, we can try repeating the same thing with either dextrose or steroid. If she does not feel any relief from today's procedure, we can consider getting an MRI of her left buttock to assess for insertional tendinopathy. There was also an abnormal echogenicity under the piriformis muscle that I was unable to completely assess with the ultrasound. Scribed for Dr. Reinoso by Jaylen Garcia, site medical director, on 12/29/2023. I, Dr. eRinoso, have personally reviewed and agree with the information entered by the scribe. Coding Level of Care Code Est Pt Level 3 (17110) Procedure Only Diagnoses Tendonitis of buttock M76.00 Left buttock pain M79.18 Piriformis syndrome of left side G57.02 CPT Codes Coding - Joint 3: 30414 - Sternocleidomastoid/Piriformis ([id number])
[2023-12-29 10:33] VITALS: BP 101/59; PULSE 61; RESP 12
== END 2023-12-29 11:18 | disposition home or self-care (01) ==
PROVIDERS: Visit Provider Internal Medicine
DX: M79.18 Myalgia, other site (principal)
CPT/HCPCS: 20552

== ENCOUNTER → 2023-12-29 10:27 | Outpatient (BNVA) | payer MEDICARE, MEDICAID, SELFPAY | PROVIDERS: Visit Provider Internal Medicine | DX: M76.00 Gluteal tendinitis, unspecified hip (principal); M79.18 Myalgia, other site; G57.02 Lesion of sciatic nerve, left lower limb | CPT/HCPCS: 20552; J2795 ==

== ENCOUNTER 2024-01-01 15:38 | Outpatient (AMB) | payer MEDICARE, MEDICAID, SELFPAY ==
--- NOTE | 2024-01-01 15:43 | MHC.OFFVIS ---
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 Reinoso. Patient reports partial left buttock pain relief following the procedure. However, she developed significant left leg weakness and numbness following the procedure when she arrived home. Family reports patient did not complain of any significant left buttock pain until next morning. Patient and family did reach out to our office several times to update on LLE symptoms and were made aware of potential local anesthetic spread to sciatic nerve. Patient continues to endorse ongoing left buttock pain with prolonged sitting and lower back pain and bilateral knee pain with walking. She does not have any significant pain during sleep or supine position. Left buttock pain started last January 2023 after intense physical therapy per family. Patient is sitting on cushion relief pad and offloading her left buttock by crossing over her left leg over right leg. Family reports per Dr. Reinoso, patient had difficult access to locate piriformis muscle with concern for tendinopathy in that area. We will proceed with pelvis MRI as next steps to rule out this prior to any further interventional therapy. Denies any recent cough, cold, infection, fever, any significant changes in her medical history, medications or recent hospitalizations. Past Procedures: 12/29/23: Left Diagnostic Piriformis Muscle Inject- no left buttock pain for 16 hours, +LLE numbness/weakness 11/14/23: Left Diagnostic Sacroiliac Joint Injection- no pain relief PRIOR: Patient presents today for follow up for continued left sided radicular pain. She was last seen in our office in June 2023 with plans for left L4-L5, L5-S1 transforaminal CHAIM injection but this has been scheduled with patient as of yet. Patient's family reports patient's left low back pain has been significantly aggravated after she completed physical therapy at [facility]. She presents today with significant localized pain in the projection of her left sacroiliac joint area with positive provocative testing for left SIJ pain as well as increased pain with dorsiflexion and positive SLR testing on right with pain radiation into her posterior leg more than anterior leg. She also reports chronic right anterior knee pain with walking and climbing stairs. Patient is interested to undergo diagnostic left SIJ injection prior to epidural steroid injection. She also recently updated her lumbar spine MRI at [facility] and report is noted below. Denies any fever, abdominal or groin pain, foot drop, bladder or bowel incontinence or saddle anesthesia. PRIOR: Patient presents today for follow-up for chronic low back pain with left-sided radiculopathy. She was supposed to undergo therapeutic injections for her radicular symptoms in February but had to cancel injections due to a second degree burn in the area of the injection from heating pad per family. Patient presents today significant pain rated at 8/10. Her back pain radiates to the left side of the back, into her buttocks and down into her thigh and the lower extremities anteriorly and posteriorly. She reports paresthesias in her left outer calf and mendoza areas with tingling sensations in her left foot. Patient reports this happens intermittently. Her left posterior lateral wound is healing well. Family reports patient was recently discharged from [facility]. Denies any fever, weight loss, abdominal or groin pain, foot drop, bladder or bowel incontinence or saddle anesthesia. PRIOR: Patient is a 67 years old female presents today with chronic pain throughout body from neck to both of her legs. Reports being in pain for the past 15 years years and attributes this to herniated discs, bilateral knees CRPS, and neuropathy. 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 Patient reports history of tripping and falling on sidewalk on her knees in 2009. Denies any surgeries, procedures or injections. She sees Dr. Manrique for memory issues related to early Alzheimer?s, CRPS and peripheral neuropathy. Recently completed physical therapy for 3 months at [facility] without significant pain relief but has a mild function improvement. Her pain is localized to bilateral anterior knee, without specific joint line tenderness. There is no skin discoloration, temperature changes, no allodynia or hyperalgesia. There is mild localized tenderness with palpation. Patient also has dressing over left lower leg and head and multiple healed and open wounds from scratching her skin. Her back pain is mainly axial and also radiates to her left lower extremity posteriorly and into her left foot with numbness and tingling as well as weakness in the left lower extremity and positive SLR testing. Most recent lumbar spine MRI of 2019 is noted below. Denies any bladder or bowel incontinence or saddle anesthesia. Location Bilateral knee pain, widespread body pain, neck to bottom of legs Duration Chronic since 2009 Characteristics of symptom or complaint Throbbing, stabbing, sharp, hot burning, radiating, aching, heavy, sore Aggravating or associated factors Movements, weather changes, walking, climbing stairs Relieving factors Cold and heat therapy, duloxetine, gabapentine, pregabalin Treatment Multiple medications, PT at [facility] x3 months-no relief PFSH Medical History Osteoporosis GERD (gastroesophageal reflux disease) Palpitations Mitral valve prolapse Prurigo nodularis Leukopenia Mild cognitive impairment Chronic neck pain Cervical herniated disc Lumbar herniated disc Tachycardia Complex regional pain syndrome I Insomnia Anxiety and depression Alzheimer disease CRPS (complex regional pain syndrome type I) Peripheral neuropathy Surgical History Hx of lymph node excision Hx of hand surgery H/O colonoscopy Social History Household Members Other:: sister & family Are you a primary nonfarm animal caretaker to a significant other at home: No Do you presently have visiting nurse or other home services: Yes ([facility] Foster Care Program-sister is her caregiver) Alcohol intake: never Patient Tobacco Use Status: Never used Tobacco Review of Systems Const All systems reviewed & are unremarkable except as noted in HPI and below Physical Exam General: Appears afebrile. Alert and oriented. Forgetful. Mood and affect appropriate. Follows and participates in conversation appropriately. Respiratory effort is unlabored. No cough. Able to transition from sit to stand with assistance from family member. Uses cane with ambulation. Back/Spine/Pelvis Cervical Spine: cervical ROM normal and No Cervical spine tenderness Thoracic/Lumbar Spine: thoracic and lumbar spine normal to inspection, No Thoracic/lumbar spine scar(s), Lasegue's sign positive on the left and localized, pain with thoraco-lumbar ROM, paraspinal muscle tenderness, thoraco-lumbar ROM limited, No thoracic spinal tenderness and lumbar spinal tenderness at L4 and at L5 Pelvis: buttock tenderness on the left and no sciatic notch tenderness Sacroiliac joints: on the right nontender and on the left (+Shane's test) tender to palpation Sacrum: tenderness on the left Extrem General: Yes capillary refill normal, Yes no clubbing, cyanosis or edema and Yes no calf tenderness Results Reviewed Results Reviewed: XR KNEE, BILATERAL 02/20/23 COMPARISON: Bilateral knee 02/08/2014. TECHNIQUE: 3 views each knee. FINDINGS: RIGHT KNEE: There is mild reduction in the tricompartmental joint space without bony erosive changes or loose bodies. There is no joint effusion seen. There is a small anterior superior patellar enthesophyte. LEFT KNEE: There is mild reduction in the tricompartmental joint space both knees. There is no visible acute fracture, dislocation or subluxation seen. No abnormal joint effusion seen. There are no loose bodies identified. IMPRESSION: Interval mild tricompartmental degenerative changes of both knees. No loose bodies or joint effusion suspected. MR SPINE LUMBAR without CONTRAST 09/21/23 at [facility] INDICATION: Severe left buttock pain for 8 months. Status post physical therapy. History of HNP in back. TECHNIQUE: Unenhanced multiplanar, multisequence MR imaging of the lumbar spine. COMPARISON: MR L-Spine 07/29/2019. FINDINGS: There is a mild lower lumbar levoscoliotic curvature. No findings of lumbar fracture or listhesis. Vertebral bodies are of normal height. Endplate Modic type changes with loss of intervertebral disc space height throughout and marginal osteophyte formation. Lumbar facet arthrosis. Conus and cauda equina of normal appearance. No acute paraspinal abnormality identified. Examination through the L1-L2 intervertebral level revealing mild facet arthrosis. Prominence of ligamentum flavum. Posterior disc osteophyte. Mild central stenosis. Bilateral lateral recess encroachment. No significant foraminal narrowing. Examination through the L2-L3 intervertebral level revealing facet arthrosis. Prominence of ligamentum flavum. Posterior disc osteophyte. Mild central stenosis. Bilateral lateral recess encroachment. Moderate RIGHT foraminal narrowing. Mild LEFT foraminal narrowing. Examination through the L3-L4 intervertebral level revealing facet arthrosis. Prominence of ligamentum flavum. Posterior disc osteophyte with a RIGHT paracentral predominance. Mild central stenosis. Bilateral lateral recess encroachment. Moderate to severe bilateral foraminal narrowing. Examination through the L4-L5 intervertebral level revealing facet arthrosis. Prominence of ligament flavum and posterior disc osteophyte. Mild central stenosis. Bilateral lateral recess encroachment. Moderate RIGHT foraminal narrowing. Moderate to severe LEFT foraminal narrowing. Examination through the L5-S1 intervertebral level facet arthrosis. Mild prominence of ligamentum flavum. Small posterior disc osteophyte. No significant central stenosis. Bilateral lateral recess encroachment. Severe bilateral foraminal narrowing. IMPRESSION: Lumbar spondylotic changes and facet arthrosis. No findings of fracture or significant listhesis. Varying degrees of relative chronic appearing central stenosis and foraminal narrowing as detailed above. No findings to suggest an acute process. No priors are available for comparison. Assessment & Plan Assessment & Plan (1) Piriformis syndrome of left side: Code(s): G57.02 - Lesion of sciatic nerve, left lower limb (2) Left buttock pain: Code(s): M79.18 - Myalgia, other site (3) Tendonitis of buttock: Code(s): M76.00 - Gluteal tendinitis, unspecified hip (4) Lumbar radiculopathy: Code(s): M54.16 - Radiculopathy, lumbar region (5) Lumbar spondylosis: Code(s): M47.816 - Spondylosis without myelopathy or radiculopathy, lumbar region Plan Patient is status post left diagnostic piriformis injection, US guided with partial left buttock pain relief. She did develop LLE numbness and weakness at home which lasted for about 8.5 hours. Family and patient were followed up via phone on 12/29/23 afternoon for this. We discussed repeating the same injection with either dextrose or steroid with US guidance. Patient and family are concerned about potential LLE numbness/weakness and are considering MRI of her left buttock to assess for insertional tendinopathy. There was also an abnormal echogenicity under the piriformis muscle that Dr. Reinoso was not arcelia to completely assess with the ultrasound. Refill provided for short script of oxycodone for moderate-severe pain and during MRI testing pre-medication. Continue to monitor for any side effects. All questions and concerns have been answered and patient agreed with the plan. Follow up for MRI results and sooner as needed. Orders: Orders MR pelvis wo/w con Today G57.02 - Lesion of sciatic nerve, left lower limb, M76.00 - Gluteal tendinitis, unspecified hip, M79.18 - Myalgia, other site Medications: Refilled oxycodone Partial Fill upon patient request. 5 mg PO BID PRN 14 tabs 0RF pain 7 days G57.02 - Lesion of sciatic nerve, left lower limb, M54.16 - Radiculopathy, lumbar region Coding Level of Care Code Est Pt Level 4 (61570) Diagnoses Piriformis syndrome of left side G57.02 Left buttock pain M79.18 Tendonitis of buttock M76.00 Lumbar radiculopathy M54.16 Lumbar spondylosis M47.816
[2024-01-01 15:47] VITALS: BP 110/57; PULSE 64; O2SAT 98; BMI 19.6
== END 2024-01-01 16:34 | disposition home or self-care (01) ==
PROVIDERS: Visit Provider Nurse Practitioner Family
DX: G57.02 Lesion of sciatic nerve, left lower limb (principal); M79.18 Myalgia, other site; M76.00 Gluteal tendinitis, unspecified hip; M47.816 Spondylosis without myelopathy or radiculopathy, lumbar region
CPT/HCPCS: 99214

== ENCOUNTER → 2024-01-01 15:38 | Outpatient (BNVA) | payer MEDICARE, MEDICAID, SELFPAY | PROVIDERS: Visit Provider Nurse Practitioner Family | DX: G57.02 Lesion of sciatic nerve, left lower limb (principal); M79.18 Myalgia, other site; M76.00 Gluteal tendinitis, unspecified hip; M54.16 Radiculopathy, lumbar region; M47.816 Spondylosis without myelopathy or radiculopathy, lumbar region | CPT/HCPCS: 99212 ==

== ENCOUNTER 2024-03-08 13:49 | Outpatient (AMB) | payer MEDICARE, MEDICAID, SELFPAY ==
--- NOTE | 2024-03-08 13:57 | MHC.OFFVIS ---
Vital Signs 03/08/24 13:58 Height 5 ft 6.5 in Weight 123 lb BMI 19.6 BP 111/55 L Blood Pressure Location Lt brachial Position Sitting Pulse 65 Pulse Source Pulse Oximeter Pulse Oximetry (%) 98 Oxygen Delivery Method Room Air Intake Visit Reasons: MRI follow up Intake Note: Pain today 06/01 Boat Deckhand Required: No Accompanied by: Sister Allergies tramadol [From ULTRAM] Allergy (Severe, Verified 03/08/24 13:58) NAUSEA/HALLUCINATIONS aspirin [ASPIRIN] Adverse Reaction (Mild, Verified 03/08/24 13:58) ULCERS HPI Comments Details: Patient presents today to discuss recent Pelvic MRI results that she completed at [facility]. She is accompanied by her sister. Patient continues to endorse left buttock pain. She is sitting with crossing her left leg over right lower leg to relieve buttock pain. MRI findings showed no findings otherwise to explain the patient''s left buttock pain, the gluteus minimus and medius tendons are intact. The hamstring tendon origin is normal. Severe degenerative disc disease of the lower lumbar spine. Previous lumbar spine MRI in 08/2023 showed L5-S1 intervertebral level facet arthrosis. Mild prominence of ligamentum flavum. Small posterior disc osteophyte. No significant central stenosis. Bilateral lateral recess encroachment. Severe bilateral foraminal narrowing. Patient denies any recent cough, cold, infection, fever, any significant changes in her medical history, medications or recent hospitalizations. Past Procedures: 12/29/23: Left Diagnostic Piriformis Muscle Inject- no pain relief, developed +LLE numbness/weakness 11/14/23: Left Diagnostic Sacroiliac Joint Injection- no pain relief PRIOR: Patient presents today for follow up for continued left sided radicular pain. She was last seen in our office in June 2023 with plans for left L4-L5, L5-S1 transforaminal CHAIM injection but this has been scheduled with patient as of yet. Patient's family reports patient's left low back pain has been significantly aggravated after she completed physical therapy at [facility]. She presents today with significant localized pain in the projection of her left sacroiliac joint area with positive provocative testing for left SIJ pain as well as increased pain with dorsiflexion and positive SLR testing on right with pain radiation into her posterior leg more than anterior leg. She also reports chronic right anterior knee pain with walking and climbing stairs. Patient is interested to undergo diagnostic left SIJ injection prior to epidural steroid injection. She also recently updated her lumbar spine MRI at [facility] and report is noted below. Denies any fever, abdominal or groin pain, foot drop, bladder or bowel incontinence or saddle anesthesia. PRIOR: Patient presents today for follow-up for chronic low back pain with left-sided radiculopathy. She was supposed to undergo therapeutic injections for her radicular symptoms in February but had to cancel injections due to a second degree burn in the area of the injection from heating pad per family. Patient presents today significant pain rated at 8/10. Her back pain radiates to the left side of the back, into her buttocks and down into her thigh and the lower extremities anteriorly and posteriorly. She reports paresthesias in her left outer calf and mendoza areas with tingling sensations in her left foot. Patient reports this happens intermittently. Her left posterior lateral wound is healing well. Family reports patient was recently discharged from [facility]. Denies any fever, weight loss, abdominal or groin pain, foot drop, bladder or bowel incontinence or saddle anesthesia. PRIOR: Patient is a 67 years old female presents today with chronic pain throughout body from neck to both of her legs. Reports being in pain for the past 15 years years and attributes this to herniated discs, bilateral knees CRPS, and neuropathy. 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 Patient reports history of tripping and falling on sidewalk on her knees in 2009. Denies any surgeries, procedures or injections. She sees Dr. Manrique for memory issues related to early Alzheimer?s, CRPS and peripheral neuropathy. Recently completed physical therapy for 3 months at [facility] without significant pain relief but has a mild function improvement. Her pain is localized to bilateral anterior knee, without specific joint line tenderness. There is no skin discoloration, temperature changes, no allodynia or hyperalgesia. There is mild localized tenderness with palpation. Patient also has dressing over left lower leg and head and multiple healed and open wounds from scratching her skin. Her back pain is mainly axial and also radiates to her left lower extremity posteriorly and into her left foot with numbness and tingling as well as weakness in the left lower extremity and positive SLR testing. Most recent lumbar spine MRI of 2019 is noted below. Denies any bladder or bowel incontinence or saddle anesthesia. Location Bilateral knee pain, widespread body pain, neck to bottom of legs Duration Chronic since 2009 Characteristics of symptom or complaint Throbbing, stabbing, sharp, hot burning, radiating, aching, heavy, sore Aggravating or associated factors Movements, weather changes, walking, climbing stairs Relieving factors Cold and heat therapy, duloxetine, gabapentine, pregabalin Treatment Multiple medications, PT at [facility] x3 months-no relief PFSH Medical History Osteoporosis GERD (gastroesophageal reflux disease) Palpitations Mitral valve prolapse Prurigo nodularis Leukopenia Mild cognitive impairment Chronic neck pain Cervical herniated disc Lumbar herniated disc Tachycardia Complex regional pain syndrome I Insomnia Anxiety and depression Alzheimer disease CRPS (complex regional pain syndrome type I) Peripheral neuropathy Surgical History Hx of lymph node excision Hx of hand surgery H/O colonoscopy Social History Household Members Other:: sister & family Are you a primary child care aide to a significant other at home: No Do you presently have visiting nurse or other home services: Yes ([facility]ult Foster Care Program-sister is her caregiver) Alcohol intake: never Patient Tobacco Use Status: Never used Tobacco Review of Systems Const All systems reviewed & are unremarkable except as noted in HPI and below Physical Exam Vital Signs: Last Vital Signs Pulse 65 03/08/24 13:58 BP 111/55 L 03/08/24 13:58 Pulse Ox 98 03/08/24 13:58 Oxygen Delivery Method Room Air 03/08/24 13:58 BMI result Body Mass Index 19.6 General: Appears afebrile. No acute distress. Alert and oriented. Forgetful. Mood and affect appropriate. Follows and participates in conversation appropriately. Respiratory effort is unlabored. No cough. Able to transition from sit to stand with assistance from family member. Uses cane with ambulation at home per family. Back/Spine/Pelvis Cervical Spine: cervical ROM normal and No Cervical spine tenderness Thoracic/Lumbar Spine: thoracic and lumbar spine normal to inspection, No Thoracic/lumbar spine scar(s), Lasegue's sign positive on the left and localized, pain with thoraco-lumbar ROM, paraspinal muscle tenderness, thoraco-lumbar ROM limited, No thoracic spinal tenderness and lumbar spinal tenderness (L4-S1) Pelvis: buttock tenderness on the left and sciatic notch tenderness on the left Sacroiliac joints: on the right nontender and on the left (+Shane's test) tender to palpation Extrem General: Yes capillary refill normal, Yes no clubbing, cyanosis or edema and Yes no calf tenderness Results Reviewed Results Reviewed: MR PELVIS w + wo CONTRAST 02/21/24 at [facility] INDICATION: Left buttock pain for a year after PT. TECHNIQUE: Multi planar fat and water sensitive sequences of the pelvis were obtained without and with intravenous contrast. Dotarem 12 mL was administered intravenously. COMPARISON: MR pelvis 04/06/2020. FINDINGS: There is severe degenerative disc disease of the lower lumbar spine. Marrow signal is within normal limits. There is no evidence of fracture, stress reaction, AVN, or focal osseous lesions in the visualized portions of the pelvis and hips. Bilateral sacroiliac joints and pubic symphysis are intact and unremarkable. No significant degenerative changes of the hips are present. There is no joint effusion. Rectus femoris tendon origins are within normal limits. Iliopsoas tendons are of normal signal and morphology without evidence of injury or surrounding inflammation. Gluteus medius and minimus tendon insertions on the greater trochanters appear normal. There is no greater trochanteric bursitis. Bilateral hamstring tendon origins are intact. Visualized short adductors of the hips are within normal limits. Bilateral visualized sciatic nerves are normal. IMPRESSION: 1. Severe degenerative disc disease of the lower lumbar spine. 2. No findings otherwise to explain the patient''s left buttock pain, the gluteus minimus and medius tendons are intact. The hamstring tendon origin is normal. MR SPINE LUMBAR without CONTRAST 09/21/23 at [facility] INDICATION: Severe left buttock pain for 8 months. Status post physical therapy. History of HNP in back. TECHNIQUE: Unenhanced multiplanar, multisequence MR imaging of the lumbar spine. COMPARISON: MR L-Spine 07/29/2019. FINDINGS: There is a mild lower lumbar levoscoliotic curvature. No findings of lumbar fracture or listhesis. Vertebral bodies are of normal height. Endplate Modic type changes with loss of intervertebral disc space height throughout and marginal osteophyte formation. Lumbar facet arthrosis. Conus and cauda equina of normal appearance. No acute paraspinal abnormality identified. Examination through the L1-L2 intervertebral level revealing mild facet arthrosis. Prominence of ligamentum flavum. Posterior disc osteophyte. Mild central stenosis. Bilateral lateral recess encroachment. No significant foraminal narrowing. Examination through the L2-L3 intervertebral level revealing facet arthrosis. Prominence of ligamentum flavum. Posterior disc osteophyte. Mild central stenosis. Bilateral lateral recess encroachment. Moderate RIGHT foraminal narrowing. Mild LEFT foraminal narrowing. Examination through the L3-L4 intervertebral level revealing facet arthrosis. Prominence of ligamentum flavum. Posterior disc osteophyte with a RIGHT paracentral predominance. Mild central stenosis. Bilateral lateral recess encroachment. Moderate to severe bilateral foraminal narrowing. Examination through the L4-L5 intervertebral level revealing facet arthrosis. Prominence of ligament flavum and posterior disc osteophyte. Mild central stenosis. Bilateral lateral recess encroachment. Moderate RIGHT foraminal narrowing. Moderate to severe LEFT foraminal narrowing. Examination through the L5-S1 intervertebral level facet arthrosis. Mild prominence of ligamentum flavum. Small posterior disc osteophyte. No significant central stenosis. Bilateral lateral recess encroachment. Severe bilateral foraminal narrowing. IMPRESSION: Lumbar spondylotic changes and facet arthrosis. No findings of fracture or significant listhesis. Varying degrees of relative chronic appearing central stenosis and foraminal narrowing as detailed above. No findings to suggest an acute process. No priors are available for comparison. Assessment & Plan Assessment & Plan (1) Lumbar radiculopathy: Code(s): M54.16 - Radiculopathy, lumbar region Category: Medical (2) Left buttock pain: Code(s): M79.18 - Myalgia, other site Category: Medical (3) Sacroiliac joint pain: Code(s): M53.3 - Sacrococcygeal disorders, not elsewhere classified Category: Medical (4) Lumbar spondylosis: Code(s): M47.816 - Spondylosis without myelopathy or radiculopathy, lumbar region Category: Medical Plan Pelvic MRI results with patient and her sister. We discussed left L5-S1 TFESI to alleviate her left radicular symptoms. SLR testing was positive on the left and equivocal on the right. Family and patient are interested to undergo Neurodiagnostic evaluation of left buttock pain with [employer] prior to any further interventional treatments. Referral sent to Dr. Martinez. All questions and concerns have been answered and patient agreed with the plan. Follow up as needed. Orders: Referrals Physiatry Referral M54.16 - Radiculopathy, lumbar region, M79.18 - Myalgia, other site Coding Level of Care Code Est Pt Level 4 (94249) Diagnoses Lumbar radiculopathy M54.16 Left buttock pain M79.18 Sacroiliac joint pain M53.3 Lumbar spondylosis M47.816
[2024-03-08 13:58] VITALS: BP 111/55; PULSE 65; O2SAT 98; BMI 19.6
== END 2024-03-08 14:24 | disposition home or self-care (01) ==
PROVIDERS: Visit Provider Nurse Practitioner Family
DX: M54.16 Radiculopathy, lumbar region (principal); M79.18 Myalgia, other site; M53.3 Sacrococcygeal disorders, not elsewhere classified; M47.816 Spondylosis without myelopathy or radiculopathy, lumbar region
CPT/HCPCS: 99214

== ENCOUNTER → 2024-03-08 13:49 | Outpatient (BNVA) | payer MEDICARE, MEDICAID, SELFPAY | PROVIDERS: Visit Provider Nurse Practitioner Family | DX: M47.816 Spondylosis without myelopathy or radiculopathy, lumbar region (principal); M54.16 Radiculopathy, lumbar region; M53.3 Sacrococcygeal disorders, not elsewhere classified; M79.18 Myalgia, other site | CPT/HCPCS: 99212 ==

== ENCOUNTER 2024-05-01 14:50 | Outpatient (AMB) | payer MEDICARE, MEDICAID, SELFPAY ==
--- NOTE | 2024-05-01 14:51 | A.OFFVIS_ITS ---
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 Pt states she has ongoing left buttock pain with prolonged sitting and lower back pain. Pelvis MRI done 02/22/24. Patient reports that she has been having these symptoms for over a year and has an extensive history of back pain due to herniated discs. She was seen with physical therapy with [facility] and this is when her pain was onset, they are unsure what exactly caused this onset. She has had injections done with pain management which caused pelegia of the left leg for about 8 hours. they are hesistating to proceed with additional injections due to this. Allergies tramadol [From ULTRAM] Allergy (Severe, Verified 05/01/24 14:52) NAUSEA/HALLUCINATIONS aspirin [ASPIRIN] Adverse Reaction (Mild, Verified 05/01/24 14:52) ULCERS Medication List - Last Reconciled 05/01/24 by Kerrie Martinez MD acetaminophen 650 mg PO TID PRN cholecalciferol (vitamin D3) (Vitamin D3) 25 mcg PO DAILY cyanocobalamin (vitamin B-12) (Vitamin B-12) 1,000 mcg PO DAILY docusate sodium 100 mg PO BID donepezil 10 mg PO BEDTIME duloxetine 60 mg PO DAILY ferrous sulfate 325 mg PO DAILY fluticasone propionate 50 mcg/actuation 1 spray intranasal DAILY gabapentin 900 mg PO TID levocetirizine 5 mg PO QPM lidocaine 5% (Lidoderm) 1 patch topical DAILY linaclotide (Linzess) 290 mcg PO DAILY melatonin 5 mg PO BEDTIME memantine mg PO metoprolol tartrate 50 mg PO BID montelukast 10 mg PO BEDTIME mupirocin 2% topical omeprazole 20 mg PO DAILY oxycodone 5 mg PO BID PRN 7 days polyethylene glycol 3350 (Miralax) 17 grams PO DAILY pregabalin 100 mg PO QID quetiapine ER 200 mg PO BEDTIME suvorexant (Belsomra) 15 mg PO BEDTIME PRN trazodone 100 mg PO BEDTIME HPI Comments Details: Reviewed notes from pain management. Patient has been following them for left- sided lumbar and buttocks pain. Patient has received piriformis injection and diagnostic left SI joint injection with relief. Per last note from Chrissy Tapia TRAVELING ELECTRICIAN, patient was interested in pursuing EMG for symptoms of numbness, hands this referral to physiatry. Here with sister/veterinarian laboratory animal care, who provides history as patient has dementia. Sister says the last injection was not a good experience, leg was flailing and couldn't walk, 10 minutes after the injection. Pain Management has recommended an epidural, which they have not scheduled yet due to this past experience. Left buttocks, radiates to calf area. Patient says there is numbness but sister says it is not her usual complaints. MRI pelvis with [facility] - did not report hip/pelvis/SI joint pathology but mentioned severe spondylosis on lumbar. No dedicated lumbar MRI has been done. [facility] Medical History Osteoporosis GERD (gastroesophageal reflux disease) Palpitations Mitral valve prolapse Prurigo nodularis Leukopenia Mild cognitive impairment Chronic neck pain Cervical herniated disc Lumbar herniated disc Tachycardia Complex regional pain syndrome I Insomnia Anxiety and depression Alzheimer disease CRPS (complex regional pain syndrome type I) Peripheral neuropathy Surgical History Hx of lymph node excision Hx of hand surgery H/O colonoscopy Social History Household Members Other:: sister & family Are you a primary customer care manager to a significant other at home: No Do you presently have visiting nurse or other home services: Yes (Adult Foster Care Program-sister is her caregiver) Alcohol intake: never Patient Tobacco Use Status: Never used Tobacco Review of Systems Const All systems reviewed & are unremarkable except as noted in HPI and below Physical Exam Constitutional: Patient appears to be in no acute distress, well nourished and well developed. Patient was appropriately conversant and oriented. Most of history provided by sister. MSK: No specific abnormalities found on inspection of the spine and all extremities. No pain with palpation over the lumbar area. Tender on left piriformis. Tender left SI joint. Nontender and GT. Lumbar ROM was full. Bilateral hip, knee and ankle ROM WNL. No ligamentous laxity or crepitance. No increased effusion. Straight-leg raising test negative. FABERE test positive left. No footdrop. Strength is 5/5 in all muscle groups tested. No increased tone noted. Neurological: Neurologic examination of the upper and lower extremities was nonfocal with intact sensation, muscle stretch reflexes and without focal motor deficits . Babinski was down going bilaterally. Clonus was negative. Gait is antalgic without loss of balance. Results Reviewed Results Reviewed: MRI pelvis reviewed as above. I reviewed records from the following: Pain management Assessment & Plan Assessment & Plan (1) Lumbar radiculopathy: Code(s): M54.16 - Radiculopathy, lumbar region Category: Medical (2) Lumbar spondylosis: Code(s): M47.816 - Spondylosis without myelopathy or radiculopathy, lumbar region Category: Medical (3) Sacroiliac joint pain: Code(s): M53.3 - Sacrococcygeal disorders, not elsewhere classified Category: Medical (4) Piriformis syndrome of left side: Code(s): G57.02 - Lesion of sciatic nerve, left lower limb Category: Medical Plan 70-year-old with chronic lower back pain, told to have disc herniations in the past. While she was in PT 01/2023, started having left buttocks pain. Still points to left piriformis areas of pain. She has had left piriformis and SI joint injections with pain management. I still think her focal pain is from the piriformis and SI joint. Explained to the sister that this is most likely mechanical, may or may not have been from PT last year. Reassured them that PT/exercises would not/can not exacerbate lumbar spinal stenosis. We already know she has lumbar spondylosis and disc herniation. I am inclined to ordering a lumbar MRI to see the extent of it and rule out significant spinal stenosis which may warrant surgery. Also advised that I may be sending them back to pain management for the lumbar epidural injection they had recommended. No indication for EMG at this time. Assessment and plan discussed with patient, and patient was agreeable. All questions were answered thoroughly. Follow up after MRI. Kerrie Martinez MD, GUCCI Board Certified, [place] Board of Physical Medicine and Rehabilitation (ABPMR) Board Certified, [place] Board of Electrodiagnostic Medicine (ABEM) Orders: Orders MR lumbar spine wo con Today G57.02 - Lesion of sciatic nerve, left lower limb, M47.816 - Spondylosis without myelopathy or radiculopathy, lumbar region, M53.3 - Sacrococcygeal disorders, not elsewhere classified, M54.16 - Radiculopathy, lumbar region Coding Level of Care Code New Pt Level 4 (13971) Diagnoses Lumbar radiculopathy M54.16 Lumbar spondylosis M47.816 Sacroiliac joint pain M53.3 Piriformis syndrome of left side G57.02
== END 2024-05-01 15:29 | disposition home or self-care (01) ==
PROVIDERS: Visit Provider Physical Medicine & Rehabilitation
DX: M54.16 Radiculopathy, lumbar region (principal); M47.816 Spondylosis without myelopathy or radiculopathy, lumbar region; M53.3 Sacrococcygeal disorders, not elsewhere classified; G57.02 Lesion of sciatic nerve, left lower limb
CPT/HCPCS: 99203

== ENCOUNTER → 2024-05-01 14:50 | Outpatient (BNVA) | payer MEDICARE, MEDICAID, SELFPAY | PROVIDERS: Visit Provider Physical Medicine & Rehabilitation | DX: M47.26 Other spondylosis with radiculopathy, lumbar region (principal); M53.3 Sacrococcygeal disorders, not elsewhere classified; G57.02 Lesion of sciatic nerve, left lower limb | CPT/HCPCS: 99202 ==

== ENCOUNTER 2024-10-24 12:00 | Outpatient (AMB) | payer MEDICARE, MEDICAID, SELFPAY ==
--- NOTE | 2024-10-24 12:01 | MHC.OFFVIS ---
Intake Visit Reasons: OV- Lumbar Spine MRI review Intake Note: Margie is a 69 year old female who presents today for a MRI review of her lumbar spine. Allergies tramadol [From ULTRAM] Allergy (Severe, Verified 10/24/24 12:08) NAUSEA/HALLUCINATIONS aspirin [ASPIRIN] Adverse Reaction (Mild, Verified 10/24/24 12:08) ULCERS HPI Comments Details: Reviewed notes from pain management. Patient has been following them for left-sided lumbar and buttocks pain. Patient has received piriformis injection and diagnostic left SI joint injection with relief. Per last note from Chrissy Tapia INDEPENDENT AGENT MUSIC EDUCATION, patient was interested in pursuing EMG for symptoms of numbness, hands this referral to physiatry. Here with sister/manager medicare, who provides history as patient has dementia. Sister says the last injection was not a good experience, leg was flailing and couldn't walk, 10 minutes after the injection. Pain Management has recommended an epidural, which they have not scheduled yet due to this past experience. Left buttocks, radiates to calf area. Patient says there is numbness but sister says it is not her usual complaints. While she was in PT 01/2023, started having left buttocks pain. Still points to left piriformis areas of pain. MRI pelvis with [facility] - did not report hip/pelvis/SI joint pathology but mentioned severe spondylosis on lumbar. No dedicated lumbar MRI has been done. MRI lumbar done - see below. Sister says still complains of pain constant. Lays down a lot when bothers her. Ices it. [facility] Medical History Osteoporosis GERD (gastroesophageal reflux disease) Palpitations Mitral valve prolapse Prurigo nodularis Leukopenia Mild cognitive impairment Chronic neck pain Cervical herniated disc Lumbar herniated disc Tachycardia Complex regional pain syndrome I Insomnia Anxiety and depression Alzheimer disease CRPS (complex regional pain syndrome type I) Peripheral neuropathy Surgical History Hx of lymph node excision Hx of hand surgery H/O colonoscopy Social History Household Members Other:: sister & family Are you a primary health care social worker to a significant other at home: No Do you presently have visiting nurse or other home services: Yes (Adult Foster Care Program-sister is her caregiver) Alcohol intake: never Patient Tobacco Use Status: Never used Tobacco Physical Exam Constitutional: Patient appears to be in no acute distress, well nourished and well developed. Most of history provided by sister. Results Reviewed Results Reviewed: MRI done at [facility]. Reviewed images independently, with patient and sister. Multilevel spondylosis and disc degeneration with foraminal stenosis. Official reading mentioned no significant change from previous. Assessment & Plan Assessment & Plan (1) Left buttock pain: Code(s): M79.18 - Myalgia, other site Category: Medical (2) Piriformis syndrome of left side: Code(s): G57.02 - Lesion of sciatic nerve, left lower limb Category: Medical (3) Sacroiliac joint pain: Code(s): M53.3 - Sacrococcygeal disorders, not elsewhere classified Category: Medical (4) Lumbar spondylosis: Code(s): M47.816 - Spondylosis without myelopathy or radiculopathy, lumbar region Category: Medical Plan Left buttocks pain, SI joint dysfunction, which I believe are secondary and stemming from lumbar spondylosis primarily. MRI images reviewed with patient and sister. We talked about further pursuing lumbar epidural injections that was discussed previously. Given them names of ob scrub tech nearby such as Dr. Ramos. They will think about this and let me know how else I can help them with. Assessment and plan discussed with patient, and patient was agreeable. All questions were answered thoroughly. Kerrie Martinez MD, GUCCI Board Certified, [place] Board of Physical Medicine and Rehabilitation (ABPMR) Board Certified, [place] Board of Electrodiagnostic Medicine (ABEM) Coding Level of Care Code Est Pt Level 3 (18697) Diagnoses Left buttock pain M79.18 Piriformis syndrome of left side G57.02 Sacroiliac joint pain M53.3 Lumbar spondylosis M47.816
== END 2024-10-24 13:30 | disposition home or self-care (01) ==
PROVIDERS: Visit Provider Physical Medicine & Rehabilitation
DX: M79.18 Myalgia, other site (principal); G57.02 Lesion of sciatic nerve, left lower limb; M53.3 Sacrococcygeal disorders, not elsewhere classified; M47.816 Spondylosis without myelopathy or radiculopathy, lumbar region
CPT/HCPCS: 99213

== ENCOUNTER → 2024-10-24 12:00 | Outpatient (BNVA) | payer MEDICARE, MEDICAID, SELFPAY | PROVIDERS: Visit Provider Physical Medicine & Rehabilitation | DX: M79.18 Myalgia, other site (principal); M53.3 Sacrococcygeal disorders, not elsewhere classified; M47.816 Spondylosis without myelopathy or radiculopathy, lumbar region; G57.02 Lesion of sciatic nerve, left lower limb | CPT/HCPCS: 99212 ==

== ENCOUNTER 2025-08-08 11:41 | Outpatient (AMB) | payer MEDICARE, MEDICAID, SELFPAY ==
--- OUTSIDE RECORDS SUMMARY | 2025-07-30 11:15 | XMS_ITS | Encounter Summary ---
Author Organization [facility] Address [address] [place] [address] Care Team Providers Care Gate Operator Name Role Phone Emily Allison MD Primary Care Provider [phone] Reason for Visit * Reason Comments Wound Care Encounter Details Date Type Department Care Team (Late st Contact Info) Description 07/30/2025 11:15 AM EDT Office Visit [facility] [address] [place] [phone] Jw Osorio PA [address] [place] [address] Pressure injury of right hip, stage 3 (CMS/HCC V24, CMS/HCC V28) (Primary Dx) Social History Tobacco Use Types Packs/Day Years Used Date Smoking Tobacco: Never Smokeless Tobacco: Never Alcohol Use Standard Drinks/Week Comments No 0 (1 standard drink = 0.6 oz pur e alcohol) Interpersonal Safety Answer Date Record ed Physical Abuse Unrecognized value 07/24/2025 Verbal Abuse Unrecognized value 07/24/2025 Comments No Sex and Gender Information Value Date Recorded Sex Assigned at Female 07/17/2025 3:41 PM EDT Legal Sex Female 11:49 AM EST Gender Identity Not on file Sexual Orientation Not on file documented as of this encounter Last Filed Vital Signs Vital Sign Reading Time Taken Comments Blood Pressure 116/60 07/30/2025 11:34 AM EDT Pulse 84 07/30/2025 11:34 AM EDT Temperature 35.7 C (96.2 F) 07/30/2025 11:34 AM EDT Respiratory Rate 16 07/30/2025 11:34 AM EDT Oxygen Saturation 100% 07/30/2025 11:34 AM EDT Inhaled Oxygen Concentration - - Weight - - Height - - Body Mass Index - - documented in this encounter Ordered Prescriptions Prescription Sig Dispense Quantity Refills Last Filled Start Date End Date amoxicillin-clavul anate (AUGMENTIN) 875-125 mg per tablet Take 1 tablet by mouth 2 (two) times a day for 10 days. 20 each 08/05/2025 08/15/2025 documented in this encounter Progress Notes * Mala Read RN - 07/30/2025 11:15 AM EDT PROVIDER ORDERS Go to ER if you are presenting with fever, chills, increased redness, pain, swelling, warmth aroundwound area and/or foul smelling odor. If you have any questions or concerns, please contact the [facility] at . Follow up(s)/ Referrals: N/A Care Home: N/A Additional Orders: Increase protein in your diet to help promote wound healing Lidocaine Orders: Apply Lidocaine 4% Topical Solution prior to debridements at Wound Care appointments Edema Control: (If your compression wrap(s) feel to tight, please elevate your leg(s) about heart level. If your wrap(s) are becoming painful and/or you loose sensation of toes/ are having toe discoloration (a change from your baseline), please remove / unwrap compression and notify [facility] [place] at . ) N/A Offloading: N/A Negative Pressure Wound Therapy: (If wound vac is off/non functioning for more than 2 hours, please remove vac dressing, apply a wetto dry dressing and notify your home care agency) N/A Cellular/Tissue Based Products: N/A Bathing / Showering / Hygiene: Ok to shower with dressing on, then change dressing right after. Non-wound Condition/ Other Skin Care: N/A Wound Location(s): Wound #1 (Right hip): Cleanser: Cleanse with Normal Saline Periwound: Apply Skin Prep to edwar wound, Apply Zinc Oxide to edwar wound Topical: N/A Primary dressing: Hydrofiber with Silver rope (Aquacel AG rope), Collagen with Silver- will dissolve in wound. If not dissolving you may moisten with saline prior to covering. (Lily to the base andlightly pack pack with alginate ag rope) Secondary dressinx4 Foam border dressing Secure with: N/A Compression Therapy: N/A Dressing Change Frequency: Daily * LINDA Perales - 07/30/2025 11:15 AM EDTAddended by: JW OSORIO on: 08/05/2025 07:37 AM Modules accepted: Orders * LINDA Perales - 07/30/2025 11:15 AM EDTAssociated Order(s): Debridement Pressure Injury Right Trochanter Post-Procedure Diagnose(s): Pressure injury of right hip, stage 3 (CMS/HCC V24, CMS/HCC V28) Images from the original note were not included. [facility] [place] [address] Office Visit Visit Date: 07/30/2025 Patient Name: Margie Gama Date of : 1955 PCP: EMILY ALLISON MD HPI: Margie Gama is a 70 y.o. female who presents to the to the wound care center for consultation right hip wound. Onset of the wound according to sister anywhere from 3 to 4 weeks prior. Patient has similar wound in the past on the left side that was treated here in the wound center many years prior. Patient has a history of reflex sympathetic dystrophy, hypertension, mitral valve prolapse,neurodermatitis, rheumatoid arthritis, iron deficiency anemia, borderline personality disorder, depression. Patient is currently in an adult foster care program and is cared for by her sister. Patient's sister had been using topical Santyl to the wound and Silvadene that she had from prior wound care visits. No recent fever chills or other complaints at this time according to patient and family. 07/30/2025 Margie Gama is a 70 y.o. female who presents to the to the wound care center for follow up right lateral hip wound. Patient's wound currently being treated with Lily and topical silver alginate. Family states some increasing discharge recently that has been clear to yellow at times. Wound continues to make slight improvement currently measuring smaller. Family denies fever or chills. 08/05/2025 Augmentin sent per wound culture will notify family and patient 06/25/2025 Right Hip Xray IMPRESSION: No fracture, dislocation, or other acute findings. There is no radiographic evidence of osteomyelitis. 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 Please note that osteomyelitis cannot be excluded on the basis of radiography and, if there is clinical concern for osteomyelitis, further evaluation with radionuclide bone scan or with MRI should beconsidered. Code 82421 -------- FINAL REPORT -------- Dictated By: Nakul Pickard Assessment and Plan: Pressure injury of right hip, stage 3 ([facility] V24, [facility] V28) (Primary) - Culture wound with gram stain Other orders - Debridement Patient to follow-up in 2 weeks. Will continue with topical Lily and alginate dressings at this time. Patient has a wound culture pending at this time which will dictate any needs for antibiotics and patient and family are aware of that. Wound debrided today tolerated well. No overt signs of infection at this time. Periwound is intact without erythema or induration or skin breakdown. Will continue to monitor wound closely. All questions were answered to her satisfaction. She was counseled regarding my impressions, instructions for management, and the importance of compliance with treatment. Follow up in about 2 weeks (around 08/13/2025) for Follow up with Mehul Osorio PA-C. >>>>>>>>>>>>>>>>>>>>>>>>>>>>>>>>>>>>>>>>>>>>>>>>>>> Vital Signs: Visit Vitals BP 116/60 Pulse 84 Temp 35.7 ??C (96.2 ??F) Resp 16 Review of Systems: Review of Systems Constitutional: Negative for chills and fever. Skin: Positive for wound. PHYSICAL EXAM Physical Exam Vitals and nursing note reviewed. Exam conducted with a knitting machine operator present. Constitutional: Appearance: Normal appearance. HENT: Head: Normocephalic. Mouth/Throat: Mouth: Mucous membranes are moist. Eyes: Extraocular Movements: Extraocular movements intact. Pulmonary: Effort: Pulmonary effort is normal. Skin: General: Skin is warm. Comments: See procedure note for details. Right lateral hip wound is noted no periwound erythema or indurations or signs of cellulitis. Wounddebrided with some clear discharge noted. Wound is not malodorous at this time wound culture obtained at this time for concerns of increasing discharge. Granulation tissue is also noted within the wound bed Neurological: Mental Status: She is alert. Mental status is at baseline. WOUND ASSESSMENT If photograph of wound not visible on this note, please check under Media tab. Wound Pressure Injury 06/10/25 Trochanter Right (Active) Date First Assessed/Time First Assessed: 06/10/25 1439 Primary Wound Type: Pressure Injury Wound Approximate Age at First Assessment (Weeks): 4 weeks Hand Hygiene Completed: Yes Location: Trochanter Wound Location Orientation: Right Assessments 06/10/2025 2:40 PM 07/30/2025 11:37 AM Wound Image Wound Bed Tissue Assessment Sloughing;Necrotic Granulation Edwar-Wound Assessment Red Scarred Shape -- Round Wound Length (cm) 2.5 cm 0.8 cm Wound Width (cm) 2.4 cm 0.8 cm Wound Surface Area (cm^2) 6 cm^2 0.5 cm^2 Wound Depth (cm) 1 cm 3 cm Wound Volume (cm^3) 6 cm^3 1.005 cm^3 Wound Healing % -- 83 Drainage Description Serosanguineous Serosanguineous Drainage Amount Moderate Large Treatments Cleansed;Other (Comment) Cleansed Dressing Gauze Foam Dressing Status Removed Removed Wound Bed Granulation (%) 0 % 100 % Wound Bed Epithelialization (%) -- 0 % Wound Bed Slough (%) 100 % 0 % Wound Bed Eschar (%) 0 % 0 % Tunneling 0 cm 0 cm Undermining 0.9 cm 0 cm Underming Start Clock Position of Wound 11 o'clock -- Underming End Clock Position of Wound 2 o'clock -- Edges Attached edges;Well-defined edges Attached edges;Well-defined edges Pressure Injury Stage Unstageable Stage 3 Active Orders Date Order Priority Status Authorizing Provider 07/30/25 1148 Debridement Routine Active LINDA Perales 07/15/25 1441 Wound Care Supplies Routine Active LINDA Perales - Wound Care Supplies: Normal saline for irrigation (sterile) - 500ml (4x4 zetuvit foam border / 1 box of large gloves/) - Wound Care Supplies: Other - Wound Care Supplies: Collagen - Wound Care Supplies: Silver Rope Alginate - Collagen Size: 2x2 - Silver Rope Alginate Size: 75x18 - Days Supply:: 30 - Debridement Performed:: Yes - Wound Drainage:: Moderate - Dispense As Written (NEENA)?: Yes - Frequency of Dressing Change: Daily - Further DME Specification:: see all supplies in comment box - Face to face evaluation was performed on: 07/15/2025 - Additional providers who completed a face to face evaluation of the patient:: JW OSORIO 07/02/25 1506 Wound Care Supplies Routine Active LINDA Perales - Wound Care Supplies: Other (lily) - Debridement Performed:: Yes - Wound Drainage:: Moderate - Dispense As Written (NEENA)?: Yes - Frequency of Dressing Change: every other day - Further DME Specification:: see supplies in comment box - Face to face evaluation was performed on: 07/02/2025 - Additional providers who completed a face to face evaluation of the patient:: JW OSORIO 06/25/25 1451 Wound Care Supplies Routine Active LINDA Perales - Wound Care Supplies: Other - Wound Care Supplies: Silver Rope Alginate - Wound Care Supplies: Foam w/border - Foam w/boarder size: 4x4 - Silver Rope Alginate Size: 1x12 - Days Supply:: 30 - Debridement Performed:: Yes - Wound Drainage:: Moderate - Dispense As Written (NEENA)?: Yes - Frequency of Dressing Change: every other day - Further DME Specification:: see - Face to face evaluation was performed on: 06/25/2025 - Additional providers who completed a face to face evaluation of the patient:: JW OSORIO 06/10/25 1507 Wound Care Supplies Routine Active LINDA Perales - Wound Care Supplies: Normal saline for irrigation (sterile) - 500ml - Wound Care Supplies: Foam w/border - Wound Care Supplies: Gauze 4x4 (non sterile) - Foam w/boarder size: 4x4 - Days Supply:: 30 - Debridement Performed:: Yes - Wound Drainage:: Moderate - Dispense As Written (NEENA)?: Yes - Frequency of Dressing Change: every other day - Face to face evaluation was performed on: 06/10/2025 - Additional providers who completed a face to face evaluation of the patient:: JW OSORIO Orders Date Order Priority Status Authorizing Provider 07/15/25 1437 Debridement Pressure Injury Right Trochanter Routine Completed LINDA Perales 07/02/25 1507 Debridement Pressure Injury Right Trochanter Routine Completed LINDA Perales 06/25/25 1449 Debridement Pressure Injury Right Trochanter Routine Completed LINDA Perales 06/18/25 1513 Debridement Pressure Injury Right Trochanter Routine Completed LINDA Perales 06/10/25 1512 Debridement Pressure Injury Right Trochanter Routine Completed LINDA Perales Pertinent Labs: Albumin Date Value Ref Range Status 07/15/2025 3.4 3.2 - 5.0 g/dL Final WBC Date Value Ref Range Status 07/15/2025 6.3 4.8 - 10.8 K/mcL Final WBC, Urine Date Value Ref Range Status 07/15/2025 135.8 (H) 0 - 4 /HPF Final Procedure Note: Debridement Pressure Injury Right Trochanter Performed by: LINDA Perales Authorized by: LINDA Perales Associated wounds: Wound Pressure Injury 06/10/25 Trochanter Right Consent: Consent obtained: Verbal Consent given by: Patient Risks discussed: Yes Time out: Immediately prior to the procedure a time out was called Debridement Details: Performed by: LINDA Type: surgical Level: subcutaneous tissue Pain control: Lidocaine 4% Severity of Tissue Pre Debridement: Fat layer exposed Severity of Tissue Post Debridement: Fat layer exposed Length (cm): 0.8 Width (cm): 0.8 Depth (cm): 3 Area (cm^2): 0.64 Length (cm): 0.8 Width (cm): 0.8 Depth (cm): 3 Percent Debrided (%): 75 Surface Area (cm^2): 0.64 Area Debrided (cm^2): 0.48 Volume (cm^3): 1.92 Tissue and other material debrided: subcutaneous tissue Devitalized tissue debrided: biofilm Instrument: Curette Amount of bleeding: none Hemostasis obtained with: Not applicable Procedural pain: 0 Post-procedural pain: 0 Response to treatment: Procedure was tolerated well PROVIDER ORDERS Patient Instructions PROVIDER ORDERS Go to ER if you are presenting with fever, chills, increased redness, pain, swelling, warmth aroundwound area and/or foul smelling odor. If you have any questions or concerns, please contact the [facility] at . Follow up(s)/ Referrals: N/A Care Home: N/A Additional Orders: Increase protein in your diet to help promote wound healing Lidocaine Orders: Apply Lidocaine 4% Topical Solution prior to debridements at Wound Care appointments Edema Control: (If your compression wrap(s) feel to tight, please elevate your leg(s) about heart level. If your wrap(s) are becoming painful and/or you loose sensation of toes/ are having toe discoloration (a change from your baseline), please remove / unwrap compression and notify [facility] at . ) N/A Offloading: N/A Negative Pressure Wound Therapy: (If wound vac is off/non functioning for more than 2 hours, please remove vac dressing, apply a wetto dry dressing and notify your home care agency) N/A Cellular/Tissue Based Products: N/A Bathing / Showering / Hygiene: Ok to shower with dressing on, then change dressing right after. Non-wound Condition/ Other Skin Care: N/A Wound Location(s): Wound #1 (Right hip): Cleanser: Cleanse with Normal Saline Periwound: Apply Skin Prep to edwar wound, Apply Zinc Oxide to edwar wound Topical: N/A Primary dressing: Hydrofiber with Silver rope (Aquacel AG rope), Collagen with Silver- will dissolve in wound. If not dissolving you may moisten with saline prior to covering. (Lily to the base andlightly pack pack with alginate ag rope) Secondary dressinx4 Foam border dressing Secure with: N/A Compression Therapy: N/A Dressing Change Frequency: Daily 07/30/2025 11:58 AM EDT LINDA Candelaria Cosigned by Carlos Matt MD at 08/08/2025 10:09 AM EDT * Karissa Wilder RN - 07/30/2025 11:15 AM EDT Discharge Patient directed to check out at front desk manager and collect visit summary with wound care directions and book follow up as directed. Dressings applied: Wound #1 (Right hip): Cleanser: Normal Saline Periwound:Skin Prep Primary dressing: Hydrofiber with Silver rope (Aquacel AG rope), Collagen with Silver- will dissolve in wound. If not dissolving you may moisten with saline prior to covering. (Lily to the base andlightly pack pack with alginate ag rope) Secondary dressinx4 Foam border dressing Dressing technique was demonstrated and explained. Patient questions answered. Pt discharge from wound care center without issue or incidence. documented in this encounter Plan of Treatment Upcoming Encounters Date Type Department Care Team (Late st Contact Info) Description 08/13/2025 2:00 PM EDT Clinical Support [facility] [address] [place] [phone] 09/01/2025 3:00 PM EST Office Visit [facility] [address] [place] [phone] Obi Thomason MD [address] [place] [address] [address] [place] [phone] documented as of this encounter Goals Goal Patient Goal Type Associated Problems Recent Progress Patient-Stated? Author Decrease Wound Volume by X% by date (in notes) Care Plan Impaired Tissue Improving(05/2025 1:45 PM EDT) No Mala Read RN Patient and Caregiver Understand Wound Care Education Care Plan Impaired Tissue On track( 1:45 PM EDT) No Mala Read RN Wound volume breakdown reduced by X% by week 4 Care Plan Impaired Tissue No Mala Read RN Wound volume breakdown reduced by X% by week 8 Care Plan Impaired Tissue No Mala Read RN Wound volume breakdown reduced by X% by week 12 Care Plan Impaired Tissue Mala Link RN Quit using tobacco (cigarettes, smokeless, etc) Care Plan Education needed on impact of smoking on wound Mala Link RN Reduce tobacco use (cigarettes, smokeless, etc) Care Plan Education needed on impact of smoking on wound No Mala Read RN Decrease Wound Volume by X% by date (in notes) Care Plan Education needed on impact of smoking on wound Mala Link RN Patient and Caregiver Understand Wound Care Education Care Plan Education needed related to ulceration/comprom ised skin integrity. No Mala Read RN Autogenerated Goal Care Plan Autogenerated Problem No Teena Herring documented as of this encounter Procedures Procedure Name Priority Date/Time Associated Diagnosis Comments CULTURE WOUND WITH GRAM STAIN Routine 07/30/2025 11:56 AM EDT Pressure injury of right hip, stage 3 (CMS/HCC V24, CMS/[facility] V28) DEBRIDEMENT Routine 07/30/2025 11:15 AM EDT Pressure injury of right hip, stage 3 (CMS/HCC V24, CMS/HCC V28) documented in this encounter Results * (ABNORMAL) Culture wound with gram stain (07/30/2025 11:56 AM EDT) Culture, Wound Escherichia coli(A) ARSLAN 08/02/2025 9:35 AM EDT [facility] Comment: The organism value for this result has been updated. These results have been appended to the previously preliminary verified report. This is an edited result. Previous organism was Gram negative bacilli on 07/31/2025 at 1128 EDT. Gram Stain Result Moderate Gram positive cocci in pairs(A) 08/02/2025 9:35 AM EDT [facility] Gram Stain Result Moderate Polymorphonuclear leukocytes(A) 08/02/2025 9:35 AM EDT [facility] Gram Stain Result No epithelial cells seen(A) 08/02/2025 9:35 AM EDT [facility] Swab Right hip region structure / Unknown Non-blood Collection / Unknown 07/30/2025 11:56 AM EDT 07/30/2025 4:09 PM EDT Adrianna [facility] - 08/02/2025 9:35 AM EDT Mixed normal skin tino present Organism Antibiotic Method Susceptibility Escherichia coli Amoxicillin/Clavulanate ARSLAN <=2 ug/ml: Susceptible Escherichia coli Ampicillin/Sulbactam ARSLAN <=2 ug/ml: Susceptible Escherichia coli Piperacillin/Tazobactam ARSLAN <=4 ug/ml: Susceptible Escherichia coli Cefazolin (Other) ARSLAN <=1 ug/ml: Susceptible Escherichia coli Cefoxitin ARSLAN <=4 ug/ml: Susceptible Escherichia coli Ceftazidime ARSLAN <=0.5 ug/ml: Susceptible Escherichia coli Ceftriaxone ARSLAN <=0.25 ug/ml: Susceptible Escherichia coli Cefepime ARSLAN <=0.12 ug/ml: Susceptible Escherichia coli Meropenem ARSLAN <=0.25 ug/ml: Susceptible Escherichia coli Amikacin ARSLAN 4 ug/ml: Susceptible Escherichia coli Gentamicin ARSLAN <=1 ug/ml: Susceptible Escherichia coli Ciprofloxacin ARSLAN <=0.06 ug/ml: Susceptible Escherichia coli Levofloxacin ARSLAN <=0.12 ug/ml: Susceptible Escherichia coli Trimethoprim/Sulfamethoxazole ARSLAN <=20 ug/ml: Susceptible us Jw [facility] MICROBIOLOGY - GENERAL ORDERABLES Final Result [facility] [address] [place] [address], * Debridement Pressure Injury Right Trochanter (07/30/2025 11:15 AM EDT) Narrative Carlos Matt MD - 07/30/2025 11:15 AM EDT Carlos Matt MD 08/08/2025 10:09 AM Debridement Pressure Injury Right Trochanter Performed by: LINDA Perales Authorized by: LINDA Perales Associated wounds: Wound Pressure Injury 06/10/25 Trochanter Right Consent: Consent obtained: Verbal Consent given by: Patient Risks discussed: Yes Time out: Immediately prior to the procedure a time out was called Debridement Details: Performed by: PA Type: surgical Level: subcutaneous tissue Pain control: Lidocaine 4% Severity of Tissue Pre Debridement: Fat layer exposed Severity of Tissue Post Debridement: Fat layer exposed Length (cm): 0.8 Width (cm): 0.8 Depth (cm): 3 Area (cm^2): 0.64 Length (cm): 0.8 Width (cm): 0.8 Depth (cm): 3 Percent Debrided (%): 75 Surface Area (cm^2): 0.64 Area Debrided (cm^2): 0.48 Volume (cm^3): 1.92 Tissue and other material debrided: subcutaneous tissue Devitalized tissue debrided: biofilm Instrument: Curette Amount of bleeding: none Hemostasis obtained with: Not applicable Procedural pain: 0 Post-procedural pain: 0 Response to treatment: Procedure was tolerated well us Jw [facility]/BEDSIDE ORDERABLE S Final Result documented in this encounter Visit Diagnoses Diagnosis Pressure injury of right hip, stage 3 (CMS/HCC V24, CMS/HCC V28)- Primary documented in this encounter Additional Health Concerns Active Problems Noted Date Diagnosed Date Impaired Tissue 06/10/2025 Education needed on impact of smoking on wound 0 06/10/2025 Education needed related to ulceration/compromised skin integrity. 06/10/2025 Autogenerated Problem 07/20/2025 documented as of this encounter Care Teams Gate Operator Relationship Specialty Start Date End Date Emily Allison MD [address] [facility] [address] [place] [address] PCP - General 02/17/21 documented as of this encounter
--- NOTE | 2025-08-08 11:53 | A.OFFVIS_ITS ---
Intake Visit Reasons: follow up sooner Accompanied by: Family/Other Allergies tramadol (From ULTRA) Allergy (Severe, Verified 08/08/25 12:24) NAUSEA/HALLUCINATIONS aspirin (ASPIRIN) Adverse Reaction (Mild, Verified 08/08/25 12:24) ULCERS Medication List - Last Reconciled 08/08/25 by Dania Almanza CNP acetaminophen 650 mg PO TID PRN atorvastatin 80 mg PO BEDTIME cholecalciferol (vitamin D3) (Vitamin D3) 25 mcg PO DAILY cyanocobalamin (vitamin B-12) (Vitamin B-12) 1,000 mcg PO DAILY docusate sodium 100 mg PO BID donepezil 10 mg PO BEDTIME 90 days duloxetine 60 mg PO DAILY duloxetine 30 mg PO DAILY ferrous sulfate 325 mg PO DAILY fluticasone propionate 50 mcg/actuation 1 spray intranasal DAILY gabapentin 900 mg (1.5 x 600 mg) PO BID 30 days hydroxyzine HCl mg PO levocetirizine 5 mg PO QPM lidocaine 5% (Lidoderm) 1 patch topical DAILY linaclotide (Linzess) 290 mcg PO DAILY melatonin 5 mg PO BEDTIME memantine mg PO metoprolol tartrate 25 mg PO BID mirtazapine 7.5 mg PO BEDTIME montelukast 10 mg PO BEDTIME mupirocin 2% topical olanzapine 5 mg PO BEDTIME PRN omeprazole 20 mg PO DAILY oxycodone 5 mg PO BID PRN 7 days polyethylene glycol 3350 (Miralax) 17 grams PO DAILY pregabalin 200 mg (2 x 100 mg) PO DAILY 30 days quetiapine 100 mg PO BEDTIME suvorexant (Belsomra) 15 mg PO BEDTIME PRN HPI Comments Details: She was here with family for concerns of shaking and toileting issues. The shaking began a few months ago with occasional tremors in legs, usually when sitting. Family noted shaking in her legs during a long car ride. A few days ago, family noted her whole body was trembling while standing and it shook the table. She is sometimes aware of the shaking and may notice it more when nervous, but family does not feel she is more nervous when it happens. She apparently had thyroid labs done which were abnormal, but does not have results. No falls. Toileting issues with increased frequency of bathroom visits attributed to sensation of incomplete stool evacuation and digital stimulation. She has history of constipation for which she takes multiple medications and follows with GI. She was having some bleeding with undetermined source and had recent colonoscopy which apparently showed some hemorrhoids, but otherwise okay. She saw [employer] recently and no vaginal source of bleeding identified, ultrasound ordered and not yet completed. She is more anxious at night and does not like to be alone. Following with psychiatrist. More forgetful and repetitive. Forgets what she is trying to say sometimes. Has some trouble with daily tasks and needs some more guidance. Appetite was okay. Able to dress herself, but clothes needed to be picked out for her. More anxious and does not like to be alone. She was working with psychiatrist and therapist. Sleep was up and down. Had an episode in 10/2024 where she was staring at her hands and did not respond for 30-40 seconds and felt off afterward.?No further episodes. Chronic low back pain and pain in feet with numbness/tingling. Has not complained of pain recently. Had nerve block for chronic LBP by pain management in 02/2024 that did not help and had trouble walking after. Injured knee from fall in 2008. Since then, has had lot of pain in both lower extremities which has been diagnosed as complex regional pain syndrome, left worse than right and had been seeing Dr. Kemp. Has weakness in both legs and [place] [facility] [place]. Was told she has polyneuropathy which possibly could be inherited. Over 18-month period, she became more forgetful and it was fairly dramatic according to her sister (Justine). In 2019, she had neuropysch testing that was inconclusive. She was scheduled to have another test done, but it was canceled. She repeats herself every 5 minutes, no longer drives, and can no longer use public transport. [facility] Medical History (Updated 08/08/25 @ 12:37 by Dania Almanza CNP) Osteoporosis GERD (gastroesophageal reflux disease) Palpitations Mitral valve prolapse Prurigo nodularis Leukopenia Mild cognitive impairment Chronic neck pain Cervical herniated disc Lumbar herniated disc Tachycardia Complex regional pain syndrome I Insomnia Anxiety and depression Alzheimer disease CRPS (complex regional pain syndrome type I) Peripheral neuropathy Surgical History Hx of lymph node excision Hx of hand surgery H/O colonoscopy Social History Household Members Other:: sister & family Are you a primary administrator health care facility to a significant other at home: No Do you presently have visiting nurse or other home services: Yes ([facility]-sister is her caregiver) Alcohol intake: never Patient Tobacco Use Status: Never used Tobacco Review of Systems Const Denies chills, Denies daytime sleepiness, Reports difficulty sleeping, Denies fatigue, Denies fever(s), Denies frequent falls, Denies headache(s), Denies increased appetite, Denies poor appetite, Denies snoring, Denies weakness, Denies weight gain and Denies weight loss Eyes Denies loss of vision ENT Denies vertigo, Denies dizziness, Denies headache(s) and Reports neck pain Card Denies chest pain at rest, Denies chest pain with activity, Denies syncope, Denies leg edema, Denies palpitations, Denies dyspnea and Denies dyspnea on exertion Resp Denies cough, Denies dyspnea, Denies dyspnea on exertion and Denies snoring GI Denies abdominal pain, Denies constipation, Denies heartburn, Denies diarrhea and Denies nausea Denies urinary frequency, Denies urinary incontinence and Denies urinary urgency Musc Denies abnormal gait, Reports back pain, Reports myalgias, Reports arthralgias, Reports neck pain, Reports numbness and Reports tingling Neuro Denies abnormal gait, Denies vertigo, Denies dizziness, Denies syncope, Denies frequent falls, Denies headache(s), Denies lack of coordination, Denies loss of vision, Reports memory loss, Reports numbness, Denies Other visual disturbances, Denies restless legs, Denies seizure-like activity, Reports tingling, Denies paresthesias, Denies tremor(s) and Denies weakness Psych Denies anxiety, Denies depression, Denies auditory hallucinations, Reports memory loss and Denies visual hallucinations Endo Denies fatigue and Denies palpitations Physical Exam Const Other: General Appearance:? normal, in no acute distress. Heart:? S1, S2 normal, no murmurs. Lungs:? clear anteriorly and posteriorly. Musculoskeletal:? normal. Extremities:? no edema. Psych:? alert, as below. Neuro Other: Abnormal Neurological Findings:?areflexia, plantars are equivocal. Diminished vibratory sensation to mid-tarsal on right and left ankle. MMSE 13/30. Mental Status: alert, as below. Cranial Nerves: Pupils are equal, round, and reactive to light. External ocular muscles are intact. Visual lemus are full, no ptosis. Face is symmetrical, no facial weakness or droop. Facial sensations are normal. Tongue protrudes in midline. Palate elevates symmetrically. Shoulder shrugging is normal Motor Examination: As above. Sensory Exam: As above. Coordination: No ataxia. No titubation. Gait Exam: Within normal limits. Cerebellar Signs: [id number] is okay. Extrapyramidal System: Mild tremor in legs while sitting. No tremors in hands noted. No rigidity with normal facial expressions. No bradykinesia. No bradyphrenia. Normal arm swing and posture. No propulsion or retropulsion. Speech: Normal. MMSE Level of Consciousness: Alert. Orientation: Does not know correct year, month, date, day, or season. Does not know correct town or county. Knows correct state. Does not know correct hospital or floor. Registration: Able to register 3 objects. Attention: Unable to do serial 7's. Recall: Able to recall 0 out of 3 objects. Language: Normal spontaneous speech, fluency, repetition, naming, comprehension, reading, and writing. Total Score: 13/30. Results Reviewed Results Reviewed: MRI Brain without contrast at [facility] 01/03/2022: Scattered mild foci of probable chronic ischemic microangiopathy in the white matter of both cerebral hemispheres and within left rashaad. No acute intracranial process. Labs 04/09/[address] brain 03/2024: Parenchymal volume loss MRI LS spine 06/2024: Moderate multilevel degenerative changes, overall stable to prior study (08/2023). Bilateral facet and ligamentum flavum hypertrophy seen throughout lumbar spine. Assessment & Plan Assessment & Plan (1) Alzheimer disease: Comment: follows w/ Code(s): G30.9 - Alzheimer's disease, unspecified; F02.80 - Dementia in other diseases classified elsewhere, unspecified severity, without behavioral disturbance, psychotic disturbance, mood disturbance, and anxiety Category: Medical Plan: Continue donepezil 10mg 1 tablet at bedtime. Continue memantine 10mg 1 tablet twice a day. Management of constipation was discussed, including increasing fiber and fluid intake, and follow up with PCP and GI as planned. (2) Peripheral neuropathy: Code(s): G62.9 - Polyneuropathy, unspecified Category: Medical Qualifiers: Peripheral neuropathy type: polyneuropathy, unspecified Qualified Code(s): G62.9 - Polyneuropathy, unspecified Plan: Continue gabapentin 600mg 1.5 tablets twice a day. Continue pregabalin 100mg 2 capsules daily. (3) Tremor: Code(s): R25.1 - Tremor, unspecified Category: Medical Plan: She apparently had thyroid labs done recently which may have been abnormal, results are not available at this time for review. They were advised to follow up with ordering provider for results and treatment, if indicated. Abnormal thyroid function may contribute to symptoms and should be addressed first. Coding Level of Care Code Est Pt Level 4 (74242) Diagnoses Alzheimer disease G30.9; F02.80 Peripheral polyneuropathy G62.9 Peripheral neuropathy type: polyneuropathy, unspecified Tremor R25.1
--- OUTSIDE RECORDS SUMMARY | 2025-08-08 14:34 | XMS_ITS | Patient Health Record ---
Author Organization [facility] jonathan [place] Address [address] [place] [address] Care Team Providers Care Martial Arts Instructor Name Role Phone Lalitha Morrissey Primary Care Provider Kyree Larios Unavailable [phone] Allergies Allergen (clinical drug ingredient) Drug/Non Drug Allergy documented on EMR Reaction Allergy Type Onset Date Status Tylox vomiting Drug Allergy Active tramadol Ultram symptoms of withdrawal Drug Allergy Active Reason For Referral No Information Medications Medication SIG (Take, Route, Frequency, Duration) Notes Start Date End Date Status Zolpidem Tartrate 5 MG 1 tablet at bedti me Orally Once a day 12/26/2013 Active Toprol XL 200 mg extended release Active carBAMazepine ER Act iwona Lidocaine Active Neurontin 400 MG 3 tablet Orally once a day Active Lyrica 50 MG Orally Twice a day Active NexIUM 40 MG 1 capsule Orally Onc e a day Active SEROquel 600 mg Once a day Act iwona Kerasal Ultra20 Acti ve Diovan 40 MG 1 tablet Orally Once a day Active Cymbalta 60 mg Activ e Famotidine 10 MG 1 tablet as needed Orally Twice a day Active Levocetirizine Dihydrochloride 5 MG 1 tablet in the evening Orally Once a day; Duration: 30 day(s) Active Vicodin 10/325 mg 1 tablet as needed Orally prn Active LORazepam 2 mg tab A ctive Namenda 5 MG 1 tablet Orally Once a day; Duration: 30 day(s) Active Social History Tobacco use other than smoking: Question Answer Notes Are you an other tobacco user? No Problems No Known Problems Plan Of Treatment Pending Test Test Name Order Date [id number] NAIL, 6 OR MORE 09/05/2011 [id number] NAIL, 6 OR MORE 12/22/2011 [id number] NAIL, 6 OR MORE 03/14/2012 [id number] NAIL, 6 OR MORE 05/28/2012 [id number] NAIL, 6 OR MORE 08/06/2012 [id number] NAIL, 6 OR MORE 01/14/2013 [id number] NAIL, 6 OR MORE 03/20/2013 [id number] NAIL, 6 OR MORE 07/24/2013 [id number] NAIL, 6 OR MORE 12/26/2013 [id number] NAIL, 6 OR MORE 03/20/2014 [id number] NAIL, 6 OR MORE 05/22/2014 [id number] NAIL, 6 OR MORE 08/18/2014 [id number] NAIL, 6 OR MORE 11/06/2014 [id number] NAIL, 6 OR MORE 02/11/2015 [id number] NAIL, 6 OR MORE 05/20/2015 [id number] NAIL, 6 OR MORE 08/19/2015 [id number] NAIL, 6 OR MORE 10/28/2015 [id number] Plate 10/28/2015 [id number] Plate 01/14/2013 [id number] Plate 08/19/2015 [id number] Plate 03/20/2014 [id number]-Oufatemj Plate 12/26/2013 48798-Otbmmkee Plate Each Additional 63503-Eyoakvez Plate Each Additional 03/2016 [id number]-Gxjb. Subungual Hematoma 4 96659-Wgah. Subungual Hematoma 4 51312- Removal of Foreign Body, Subcut 1 Insurance Providers Payer Name Payer Address Payer Phone Subscriber Number Group Number Insured Name Patient Relationship to Insured Coverage Start Date Coverage End Date Medicare National [employer] [address] [facility] [place] [address] [id number] [place] Margie Self - patient is the insured Medical (General) History Medical History History ICD Code depression fibromyalgia hypertension measles mumps nerve disease osteoporosis psychiatric disorder poor circulation reflux sciatica chicken pox broken bones hypercholesterolemia back, hip, knee pain asthma Arthritis Anxiety disorder mitral valve prolapse heart condition Surgical History Surgery Date(Month/Year) hand/wrist laparoscopy 1984, 1989, 1992 lumpectomy 1985 tonsillectomy and adenoidectomy 1976 finger surgery 06/2013 Hospitalization History Reason Date(Month/Year) [facility] 3 days- mini break down 03/2013 [facility]- broken finger 06/09/2013 [facility] for 5 days 07/24 013
--- OUTSIDE RECORDS SUMMARY | 2025-08-08 14:34 | XMS_ITS ---
Care Plan Created on: August 08, 2025 Margie Gama : 1955 Sex: Female Author Organization [facility] Address [address] [place] [address] Phone Care Team Providers Care Ginner Helper Name Role Phone Lizy Allison MD Primary Care Provider [phone] Active Problems Problem Noted Date Diagnosed Date Adverse effect of antiepileptic 07/15/2025 Overview (07/15/2025): topiramate: @ 100 mg/day caused headache, balance changes. 09/2012-11/01/12 De Quervain's tenosynovitis 07/15/2025 Diffuse myofascial pain syndrome 07/15/2025 Drug-induced constipation 07/15/2025 Hypercholesterolemia 07/15/2025 Hypersomnia 07/15/2025 Overview (07/15/2025): Villanueva Sleepiness Scale score: 11 on 07/13/2012 Low back pain 07/15/2025 Knee pain 07/15/2025 Pressure injury of right hip , stage 3 ([facility] V24, CMS/[facility] V28) 06/25/2025 Pressure ulcer of right hip, unstageable (CMS/[facility] V24, CMS/[facility] V28) 06/10/2025 Pressure injury of right but tock, stage 3 (CMS/[facility] V24, CMS/HCC V28) 05/21/2025 Non-STEMI (non-ST elevated m yocardial infarction) (CMS/HCC V24, CMS/[facility] V28) 03/05/2025 Assessment & Plan (03/10/2025 2:18 PM EDT): Patient was recently hospitalized at [facility] as outlined in detailed above. She presented with chest pain and had elevation in troponins. She was treated medically with a heparin drip. Echocardiogram was normal therefore she did not undergo coronary angiogram. She continues on cardioprotective medical therapy with aspirin, Beta-alton and statin. She denies any exertional anginal symptoms. I have reviewed with the patient the importance of a heart healthy lifestyle which includes eating a low-fat low-salt diet, getting regular exercise, maintaining a healthy weight, not smoking, and following up with routine medical care. Urinary frequency 12/05/2023 Overview (09/27/2024): Last Assessment & Plan: Greatest concern today is increased confusion over the last 2 weeks. Patient does have history of dementia and has had more forgetfulness as of late. This is a more sudden change and out of the ordinary for her. Upon further questioning she does admit to some urinary frequency and urgency. No fevers have been reported. Out of an abundance of caution I did send the patient to the lab for a urinalysis and urine culture and advised that they reach out to the primary care provider. Also advised that if she were to develop any fevers or worsening confusion that they should go to the emergency room. Depressive disorder 07/08/2022 Anxiety disorder 07/08/2022 Onychomycosis due to dermatophyte 11/25/2021 Palpitation 02/19/2021 Assessment & Plan (03/10/2025 2:29 PM EDT): Patient has history of palpitations which is well-managed on low-dose metoprolol. No changes at this time. Patient encouraged to maintain proper hydration. Psoriasis vulgaris 02/03/2021 Vitiligo 12/21/2020 Local infection of the skin and subcutaneous tissue, unspecified 07/22/2020 Herpesviral vesicular dermatitis 08/15/2019 Disorder of skin or subcutaneous tissue 01/04/20 Prurigo nodularis 10/10/2018 Iron deficiency anemia 10/10/2017 Overview (09/27/2024): ? Hemorrhoids Rectal bleeding 10/10/2017 Overview (09/27/2024): Referred to GI Assessment & Plan (07/15/2025 1:31 PM EDT): Borderline personality disorder ([facility] V24, S/[facility] V28) 10/04/2017 Overview (09/27/2024): Follows with psychiatrist Dr. Gutierrez Depression, major, recurrent , severe with psychosis ([facility] V24, [facility] V28) 10/04/2017 Hypertension 10/04/2017 Assessment & Plan (03/10/2025 2:29 PM EDT): Patient is well pressure today 106/60. She continues to tolerate low-dose metoprolol. No changes to her present medical therapies. 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 06/10/2025 Autogenerated Problem 07/20/2025 Goals Goal Patient Goal Type Associated Problems Recent Progress Patient-Stated? Author Decrease Wound Volume by X% by date (in notes) Care Plan Impaired Tissue Improving(05/2025 1:45 PM EDT) No Mala Read RN Patient and Caregiver Understand Wound Care Education Care Plan Impaired Tissue On track( 025 1:45 PM EDT) No Mala Read RN [...] of smoking on wound Mala Link RN Decrease Wound Volume by X% by date (in notes) Care Plan Education needed on impact of smoking on wound Mala Link RN Patient and Caregiver Understand Wound Care Education Care Plan Education needed related to ulceration/comprom ised skin integrity. No Mala Read RN Autogenerated Goal Care Plan Autogenerated Problem No Teena Herring Interventions Care Plan Interventions Intervention Entry Date Outcome Provide caregiver with wound care procedure information 06/10/2025 Educate caregiver on proper wound care procedures 06/10/2025 Give provider list of wound care supplies 06/10/2025 Refill wound care supplies 06/10/2025 Send Wound Care Supplies 06/10/2025 Give provider list of wound care supplies 06/10/2025 Refill wound care supplies 06/10/2025 Send Wound Care Supplies 06/10/2025 Provide caregiver with wound care procedure information 06/10/2025 Educate caregiver on proper wound care procedures 06/10/2025 Document patient eligibility for HBO 06/10/2025 Assess patient for HBO treatment 06/10/2025 Record wound depth 06/10/2025 Record total wound area 06/10/2025 Measure wound progress 06/10/2025 Create an action plan identifying patient strengths and supports 06/10/2025 Establish quit date with patient 06/10/2025 Discuss prior cessation attempts 06/10/2025 Discuss preferred method of cessation and plan 06/10/2025 Discuss barriers to smoking cessation 06/10/2025 Discuss smoking status with patient 06/10/2025 Create an action plan identifying patient strengths and supports 06/10/2025 Establish quit date with patient 06/10/2025 Discuss prior cessation attempts 06/10/2025 Discuss preferred method of cessation and plan 06/10/2025 Discuss barriers to smoking cessation 06/10/2025 Discuss smoking status with patient 06/10/2025 Provide caregiver with wound care procedure information 06/10/2025 Educate caregiver on proper wound care procedures 06/10/2025 Document patient eligibility for HBO 06/10/2025 Assess patient for HBO treatment 06/10/2025 Record wound depth 06/10/2025 Record total wound area 06/10/2025 Measure wound progress 06/10/2025 Provide caregiver with wound care procedure information 06/10/2025 Educate caregiver on proper wound care procedures 06/10/2025 Document patient eligibility for HBO 06/10/2025 Assess patient for HBO treatment 06/10/2025 Record wound depth 06/10/2025 Record total wound area 06/10/2025 Measure wound progress 06/10/2025 Provide caregiver with wound care procedure information 06/10/2025 Educate caregiver on proper wound care procedures 06/10/2025 Document patient eligibility for HBO 06/10/2025 Assess patient for HBO treatment 06/10/2025 Record wound depth 06/10/2025 Record total wound area 06/10/2025 Measure wound progress 06/10/2025 Provide caregiver with wound care procedure information 06/10/2025 Educate caregiver on proper wound care procedures 06/10/2025 Give provider list of wound care supplies 06/10/2025 Refill wound care supplies 06/10/2025 Give provider list of wound care supplies 06/10/2025 Refill wound care supplies 06/10/2025 Provide caregiver with wound care procedure information 06/10/2025 Educate caregiver on proper wound care procedures 06/10/2025 Record wound depth 06/10/2025 Record total wound area 06/10/2025 Measure wound progress 06/10/2025 Related Goals and Interventions Goal Associated Intervent ions Decrease Wound Volume by X% by date (in notes) Give provider list of wound care supplie s; Refill wound care supplies; Provide caregiver with wound care procedure information; Educate caregiver on proper wound care procedures; Record wound depth; Record total wound area; Measure wound progress Patient and Caregiver Unders tand Wound Care Education Provide caregiver with wound care proced ure information; Educate caregiver on proper wound care procedures; Give provider list of wound care supplies; Refill wound care supplies Wound volume breakdown reduc ed by X% by week 4 Provide caregiver with wound care proced ure information; Educate caregiver on proper wound care procedures; Document patient eligibility for HBO; Assess patient for HBO treatment; Record wound depth; Record total wound area; Measure wound progress Wound volume breakdown reduc ed by X% by week 8 Provide caregiver with wound care proced ure information; Educate caregiver on proper wound care procedures; Document patient eligibility for HBO; Assess patient for HBO treatment; Record wound depth; Record total wound area; Measure wound progress Wound volume breakdown reduc ed by X% by week 12 Provide caregiver with wound care proced ure information; Educate caregiver on proper wound care procedures; Document patient eligibility for HBO; Assess patient for HBO treatment; Record wound depth; Record total wound area; Measure wound progress Quit using tobacco (cigarett es, smokeless, etc) Create an action plan identifying patien t strengths and supports; Establish quit date with patient; Discuss prior cessation attempts; Discuss preferred method of cessation and plan; Discuss barriers to smoking cessation; Discuss smoking status with patient Reduce tobacco use (cigarett es, smokeless, etc) Create an action plan identifying patien t strengths and supports; Establish quit date with patient; Discuss prior cessation attempts; Discuss preferred method of cessation and plan; Discuss barriers to smoking cessation; Discuss smoking status with patient Decrease Wound Volume by X% by date (in notes) Give provider list of wound care supplie s; Refill wound care supplies; Send Wound Care Supplies; Provide caregiver with wound care procedure information; Educate caregiver on proper wound care procedures; Document patient eligibility for HBO; Assess patient for HBO treatment; Record wound depth; Record total wound area; Measure wound progress Patient and Caregiver Unders tand Wound Care Education Provide caregiver with wound care proced ure information; Educate caregiver on proper wound care procedures; Give provider list of wound care supplies; Refill wound care supplies; Send Wound Care Supplies
--- OUTSIDE RECORDS SUMMARY | 2025-08-08 14:34 | XMS_ITS | Encounter Summary ---
Author Organization [facility] Address [address] [place] [address] Care Team Providers Care Plant Packer Name Role Phone Lizy Allison MD Primary Care Provider [phone] Reason for Visit * Reason Onset Date Comments Results 08/06/2025 Start antibiotic for culture results Encounter Details Date Type Department Care Team (Late Contact Info) Description 08/06/2025 Telephone [facility] [address] [place] [phone] Mala Read RN Social History Tobacco Use Types Packs/Day Years [...] on file documented as of this encounter Progress Notes * Mala Read RN - 08/06/2025 12:00 PM EDT Left message regarding culture results. Let patient/ family know that Augmentin was sent to the pharmacy. To start taking it twice a day for 10 days. Told if any other questions to reach out to us. documented in this encounter Plan of Treatment Upcoming Encounters Date Type Department Care Team (Late Contact Info) Description 08/13/2025 2:00 PM EDT Clinical Support [facility] [address] [place] [address] 09/01/2025 3:00 PM EST Office Visit [facility] Card[facility] [address] [place] [address] Obi Thomason MD [address] [place] [address] [address] [place] [address] documented as of this encounter Goals Goal Patient Goal Type Associated Problems Recent Progress Patient-Stated? Author Decrease Wound Volume by X% by date (in notes) Care Plan Impaired Tissue Improving(05/2025 1:45 PM EDT) Mala Link RN Patient and Caregiver Understand Wound Care Education Care Plan Impaired Tissue On track( 1:45 PM EDT) Mala Link RN Wound volume breakdown reduced by X% by week 4 Care Plan Impaired Tissue No Mala Read RN Wound volume breakdown reduced by X% by week 8 Care Plan Impaired Tissue Mala Link RN Wound volume breakdown reduced by X% [...] Teena Herring documented as of this encounter Visit Diagnoses Not on filedocumented in this encounter Additional Health Concerns Active Problems Noted Date Diagnosed Date Impaired Tissue 06/10/2025 Education needed on impact of smoking on wound 0 06/10/2025 Education needed related to ulceration/compromised skin integrity. 06/10/2025 Autogenerated Problem 07/20/2025 documented as of this encounter Care Teams Plant Packer Relationship Specialty Start Date End Date Lizy Allison MD [address] [facility] [address] [place] [address] PCP - General 02/17/21 documented as of this encounter
--- OUTSIDE RECORDS SUMMARY | 2025-08-08 14:34 | XMS_ITS | Encounter Summary ---
Author Organization [facility] Address [address] [facility] [address] [place] [address] Phone Care Team Providers Care District Court Justice Name Role Phone Berenice Espinosa WATER PROOFER Primary Care Provider + Swetha Rodriguez WATER PROOFER Primary Care Provider + Lizy Allison MD Primary Care Provider Reason for Referral * Consultation (Elective) - Closed Specialty Diagnoses / Procedures Referred By Larissa duncan Referred To Contact Neurology Diagnoses Encounter for consultation System, Provider Not In, [facility] [id number] [place] [phone] Phone: tel: Referral ID Status Reason Start Date Expiration Date Visits Re quested Visits Authorized [id number] Closed 11/27/2018 11/27/2019 1 1 Encounter Details Date Type Department Care Team (Latest Contact Info) Description 11/27/2018 Transcribe Orders [facility] Department of Neurology [address] [place] [address], [address] Floor, [address] [place] [address] Kathy Rosado PA [address] [facility] [address] [place] [address] Encounter for consultation (Primary Dx) Social History Tobacco Use Types Packs/Day Years Used Date Smoking Tobacco: Never Assessed Comments Unknown Sex and Gender Information Value Date Recorded Sex Assigned at Not on file Legal Sex Female 10:35 PM EDT Gender Identity Not on file Sexual Orientation Not on file documented as of this encounter Plan of Treatment Scheduled Referrals Name Type Priority Associated Diagnoses Orde r Schedule Ambulatory referral to [facility] Neurology Outpatient Referral Routine Encounter for consultation Ordered: 11/27/2018 documented as of this encounter Visit Diagnoses Diagnosis Encounter for consultation- Primary documented in this encounter Care Teams District Court Justice Relationship Specialty Start Date End Date Berenice Espinosa NP [address] [place] [address] PCP - General 09/18/18 06/27/19 Swetha Rodriguez NP [address] [place] [address] PCP - General 06/28/19 02/18/21 Lizy Allison MD [address] [place] [address] PCP - General Family Medicine 02/19/21 documented as of this encounter Additional Source Comments The information contained in this document represents components of the legal health record. It is not the complete legal health record.[facility]
--- OUTSIDE RECORDS SUMMARY | 2025-08-08 14:34 | XMS_ITS | Encounter Summary ---
Author Organization [facility] Address [address] [place] [address] Care Team Providers Care Security Patrol Driver Name Role Phone Lizy Allison MD Primary Care Provider [phone] Reason for Visit * Reason Onset Date Comments Results 08/08/2025 Encounter Details Date Type Department Care Team (Late st Contact Info) Description 08/08/2025 Telephone Gastroenterology - [address] [place] [phone] Aminta Juares MD [address] [place] [address] [place] [phone] Social History Tobacco Use Types Packs/Day Years [...] as of this encounter Progress Notes * Jeana Yee - 08/08/2025 2:12 PM EDT Pt is calling requesting a call back with the results of her most recent labs ( thyroid ) . documented in this encounter Plan of Treatment Upcoming Encounters Date Type Department Care Team (Late st Contact Info) Description 08/13/2025 2:00 PM EDT Clinical Support [facility] [address] [place] [address] 09/01/2025 3:00 PM EST Office Visit [facility] Cardiology [facility] [address] [facility] [address] [place] [address] Obi Thomason MD [address] [place] [address] [address] [place] [address] documented as of this encounter [...] by week 4 Care Plan Impaired Tissue Mala Link RN [...] documented as of this encounter Care Teams Security Patrol Driver Relationship Specialty Start Date End Date Lizy Allison MD [address] [facility] [address] [place] [address] PCP - General 02/17/21 documented as of this encounter
--- OUTSIDE RECORDS SUMMARY | 2025-08-08 14:34 | XMS_ITS | Clinical Summary ---
Author Organization [facility] Address [address] [place] [phone] Phone Care Team Providers Care Chemist Pharmaceutical Name Role Phone Lizy Allison MD Primary Care Provider Allergies Active Allergy Reactions Criticality Noted Date Comments Oxycodone-Acetaminophen 06/28/2019 Tramadol 06/28/2019 Medications acetaminophen (TYLENOL) 500 MG tablet Take 500 mg by mouth every 6 (six) hours as needed for pain (specific location in comments). Active cholecalciferol (VITAMIN D3) 25 MCG (1,000 unit) tablet Take 1,000 Units by mouth daily. Active melatonin 5 mg Tab Take by mouth nightly at bedtime. Active ibuprofen (ADVIL,MOTRIN) 800 MG tablet Take 800 mg by mouth as needed for pain (specific location in comments). Active busPIRone (BUSPAR) 10 MG tablet Take 10 mg by mouth 3 (three) times a day. Active gabapentin (NEURONTIN) 300 MG capsule Take 900 mg by mouth 3 (three) times a day. Active mirtazapine (REMERON) 30 MG tablet Take 30 mg by mouth nightly at bedtime. Active docusate sodium (COLACE) 100 MG capsule Take 100 mg by mouth 2 (two) times a day. Active hydrOXYzine HCl (ATARAX) 10 MG tablet Take 10 mg by mouth 3 (three) times a day as needed for itching. Active polyethylene glycol 3350 (MIRALAX ORAL) Take by mouth as needed. Active zolpidem (AMBIEN) 10 mg tablet Take 10 mg by mouth nightly at bedtime as needed for sleep. Active carBAMazepine (CARBATROL) 100 mg 12 hr capsule Take 100 mg by mouth 2 (two) times a day. Active montelukast (SINGULAIR) 10 mg tablet Take 10 mg by mouth nightly at bedtime. Active esomeprazole (NEXIUM) 40 MG capsule Take 40 mg by mouth daily before breakfast. Active levocetirizine (XYZAL) 5 MG tablet Take 5 mg by mouth every evening. Active metoprolol succinate (TOPROL-XL) 200 MG 24 hr tablet Take 200 mg by mouth daily. Active FLUoxetine (PROZAC) 10 MG tablet Take 10 mg by mouth daily. Active QUEtiapine (SEROQUEL) 200 MG tablet Take 400 mg by mouth nightly at bedtime. Active pregabalin (LYRICA) 150 MG capsule Take 150 mg by mouth 2 (two) times a day. Active CEPHALEXIN ORAL Take 1 capsule by mouth 2 (two) times a day. Active capsaicin (ZOSTRIX) 0.025 % cream Apply to skin 2-3x/day. Mix with bland emollient in 4:1 ratio (emollient:cap saicin), then gradually decrease ratio 120 g 11 0 Active Social History Tobacco Use Types Packs/Day Years Used Date Smoking Tobacco: Never Smokeless Tobacco: Never Education Answer Date Recorded Are you interested in more education? Not on gisela e 02/17/2023 Are you concerned about learning? Not on file 02/17/2023 No 02/17/2023 No 02/17/2023 Digital Access Answer Date Recorded No 03/18/2023 No 03/18/2023 No 03/18/2023 Reliable internet access at home? Not on file 03/18/2023 Device with a working camera? Not on file Comments Unknown Sex and Gender Information Value Date Recorded Sex Assigned at Not on file Legal Sex Female 10:35 PM EDT Gender Identity Not on file Sexual Orientation Not on file Last Filed Vital Signs Vital Sign Reading Time Taken Comments Blood Pressure 93/52 06/08/2020 2:40 PM EDT Pulse 70 06/08/2020 2:40 PM EDT Temperature 36.5 C (97.7 F) 06/08/2020 2:40 PM EDT Respiratory Rate - - Oxygen Saturation 100% 06/08/2020 2:40 PM EDT Inhaled Oxygen Concentration - - Weight 64.4 kg (142 lb) 12/27/2019 11:04 AM EST Height 168.9 cm (5' 6.5 ) 12/27/2019 11:04 AM ES T Body Mass Index 22.58 12/27/2019 11:04 AM EST Plan of Treatment Health Maintenance Due Date Last Done Comments CARBAMAZEPINE (TEGRETOL) LEVEL 1955 LIPID PANEL 1955 DEPRESSION SCREENING 1969 HEPATITIS C SCREENING 1975 MAMMOGRAM 1997 COLOGUARD 2002 COLONOSCOPY 2002 COLORECTAL CANCER SCREENING 2002 FIT TEST 2002 FOBT 2002 SIGMOIDOSCOPY 2002 VIRTUAL COLONOSCOPY 2002 PNEUMOCOCCAL VACCINES (50+ years) (1 of 1 - PCV) 2007 ZOSTER VACCINES (1 of 2) 2007 OSTEOPOROSIS SCREENING INITI AL (ONE-TIME) 2022 Adult Td,Tdap Booster 06/09/2023 06/09/2013 INFLUENZA VACCINE (#1) 2025 COVID-19 VACCINE (3 - 2024-2 6 season) 2025 11/24/2021, 11/03/2021 RSV VACCINE (1 - 1-dose 75+ series) 2032 SMOKING STATUS SCREENING (On ce After 26 Yrs) Completed 12/27/2019 HEPATITIS A VACCINES Aged Out No long er eligible based on patient's age to complete this topic HIB VACCINES Aged Out No longer eligi ble based on patient's age to complete this topic MENINGOCOCCAL VACCINES (ACWY) Aged Out No longer eligible based on patient's age to complete this topic MENINGOCOCCAL VACCINES (B) Aged Out N o longer eligible based on patient's age to complete this topic Medical Devices Not on file Insurance MEDICARE PART A & [place] [facility] [place] & B [facility] Care Teams Chemist Pharmaceutical Relationship Specialty Start Date End Date Lizy Allison MD PCP - General Family Medicine 02/19/21 Additional Source Comments The information contained in this document represents components of the legal health record. It is not the complete legal health record.[facility]
--- OUTSIDE RECORDS SUMMARY | 2025-08-08 14:34 | XMS_ITS | Encounter Summary ---
Author Organization [facility] Address [address] [place] [address] Care Team Providers Care Energy Trader Name Role Phone Lizy Allison MD Primary Care Provider [phone] Encounter Details Date Type Department Care Team (Late st Contact Info) Description 07/25/2025 Results Follow-Up Gastroenterology - [address] [facility] [address] [place] [phone] Aminta Juares MD [address] [address] Social History Tobacco Use Types Packs/Day Years [...] as of this encounter Progress Notes * Brianda Bryan MA - 07/25/2025 9:51 AM EDT ----- Message from Shannan Juares MD sent at 07/25/2025 7:58 AM EDT ----- Please let patient's sister, who is her caregiver, know that her B12, folate, thyroid and iron studies were all in the normal range. ----- Message ----- From: Lab, Background User Sent: 07/24/2025 4:54 PM EDT To: Aminta Juares MD * Aminta Juares MD - 07/25/2025 7:58 AM EDT Please let patient's sister, who is her caregiver, know that her B12, folate, thyroid and iron studies were all in the normal range. documented in this encounter Plan of Treatment Upcoming Encounters Date Type Department Care Team (Late st Contact Info) Description 08/13/2025 2:00 PM EDT Clinical Support [facility] [address] [place] [phone] 09/01/2025 3:00 PM EST Office Visit [facility] Cardiology [facility] [address] [place] [address] [place] [phone] Obi Thomason MD [address] [place] [address] [address] [place] [phone] documented as of this encounter Goals Goal [...] by week 12 Care Plan Impaired Tissue No Mala Read RN Quit using tobacco (cigarettes, smokeless, etc) Care Plan Education needed on impact of smoking on wound No Mala Read RN Reduce tobacco use (cigarettes, smokeless, etc) Care Plan Education needed on impact of smoking on wound No Mala Read RN Decrease Wound Volume by X% by date (in notes) Care Plan Education needed on impact of smoking on wound No Mala Read RN Patient and Caregiver [...] documented as of this encounter Care Teams Energy Trader Relationship Specialty Start Date End Date Lizy Allison MD [address] [facility] [address] [place] [address] PCP - General 02/17/21 documented as of this encounter
--- OUTSIDE RECORDS SUMMARY | 2025-08-08 14:34 | XMS_ITS | Clinical Summary ---
Author Organization [facility] [employer] Address [address] [facility] [facility] [place] [place] [address] Phone Care Team Providers Care Fire Management Specialist Name Role Phone Lizy Allison MD Primary Care Provider [phone] Allergies Active Allergy Reactions Criticality Noted Date Comments Oxycodone-Acetaminophen 10/10/2017 Roger allergy Tramadol Hcl 02/19/2021 Medications suvorexant (Belsomra) 15 mg tablet Take 15 mg by mouth daily. 11/23/19 24 Active donepeziL (ARICEPT) 10 mg tablet Take 1 tablet (10 mg total) by mouth 1 (one) time each day. 11/21/19 24 Active memantine (NAMENDA) 10 mg tablet Take 1 tablet (10 mg total) by mouth 2 (two) times a day. 09/26/20 23 Active linaCLOtide (Linzess) 290 mcg capsule Take 1 capsule (290 mcg total) by mouth 1 (one) time each day before breakfast. 08/18/20 22 Active montelukast (SINGULAIR) 10 mg tablet Take 1 tablet (10 mg total) by mouth at bedtime. Active pregabalin (LYRICA) 200 mg capsule Take 100 mg by mouth 2 (two) times a day. Active QUEtiapine (SEROquel) 300 mg tablet Take 100 mg by mouth at bedtime. Active ferrous sulfate 325 mg (65 mg elemental iron) tablet Take 325 mg by mouth daily. Active cholecalciferol (VITAMIN D-3) 50 mcg (2,000 unit) tablet Take 1 tablet (2,000 Units total) by mouth 1 (one) time each day. Active DOCUSATE SODIUM ORAL Take by mouth 2 times daily. Active gabapentin (NEURONTIN) 600 mg tablet Take 1.5 tablets (900 mg total) by mouth 2 (two) times a day. Active ascorbic acid (VITAMIN C) 1,000 mg tablet Take 1,000 mg by mouth 2 times daily. Active CALCIUM CARBONATE-VITAMIN D2 ORAL Take by mouth 2 times daily. Active duloxetine HCl (DULOXETINE ORAL) Take 120 mg by mouth 1 (one) time each day. Active levocetirizine (XYZAL) 5 mg tablet Take 5 mg by mouth every evening. Active OMEPRAZOLE ORAL Take 20 mg by mouth daily. Active melatonin 5 mg capsule Take by mouth. Activ e magnesium hydroxide (MILK OF MAGNESIA) 400 mg/5 mL suspension Take 15 mL by mouth every other day for 30 days. 06/02/20 18 Active acetaminophen (TYLENOL 8 HOUR) 650 mg 8 hr tablet Take 1 Tab by mouth every 8 hours as needed for Pain. 10/10/20 17 Active OLANZapine (ZyPREXA ZYDIS) 5 mg disintegrating tablet Dissolve 1 tablet (5 mg total) on top of the tongue at bedtime. Active MIRTAZAPINE ORAL Take 7.5 mg by mouth at bedtime. Active atorvastatin (LIPITOR) 80 mg tablet Take 10 mg by mouth at bedtime. Active aspirin 81 mg EC tablet Take 1 tablet (81 mg total) by mouth 1 (one) time each day. Active hydrOXYzine HCL (ATARAX) 10 mg tablet Take 2 tablets (20 mg total) by mouth 1 (one) time each day. At night Active omega 4-mdw-mte-fish oil (Fish OiL) 1,000 (120-180) mg capsule Active mupirocin (BACTROBAN) 2 % ointment Apply topically 1 (one) time each day. Active triamcinolone (KENALOG) 0.1 % cream Apply topically 1 (one) time each day. Active metoprolol tartrate (LOPRESSOR) 25 mg tablet TAKE 1 TABLET(25 MG) BY MOUTH TWICE DAILY 180 tablet 1 06/19/20 25 Active tnwgt-gtye-XmBWP- dytjwk-qx-cpk (Adolph, with collagen,) 7-7-1.5 gram powder in packetIndications :Pressure injury of right hip, stage 3 (CMS/HCC V24, CMS/HCC V28) Take 1 packet by mouth 2 (two) times a day. 180 each 1 06/25/20 25 025 Active fluticasone propionate (FLONASE) 50 mcg/actuation nasal spray Administer 1 spray into each nostril 2 (two) times a day. SHAKE LIQUID 06/13/20 25 Active polyethylene glycol (Golytely) 236-22.74-6.74 -5.86 gram solution Take 4L by mouth once for one dose. May substitue any PEG. Starting at 2PM the day before your procedure drink 1 8oz glasses at your own pace until you complete half of the gallon. Finish 2nd half of the gallon at 8PM. 4000 mL 07/15/20 25 Active bisacodyL (DULCOLAX) 5 mg EC tablet Take 2 tablets by mouth right before beginning bowel prep. See instructions provided by the office 2 tablet 07/15/20 25 Active polyethylene glycol (MIRALAX) 17 gram packet Take 17 g by mouth 1 (one) time each day. 510 g 1 07/29/20 25 Active valsartan (Diovan) 40 mg tablet Take 1 tablet (40 mg total) by mouth 1 (one) time each day at the same time. Active amoxicillin-clavu lanate (AUGMENTIN) 875-125 mg per tablet Take 1 tablet by mouth 2 (two) times a day for 10 days. 20 each 08/05/20 25 025 Active polyethylene glycol (MIRALAX) 17 gram packet One capful (17g) once daily as needed for constipation. 01/14/20 21 025 Discontinu ed(Reorder ) zinc oxide 20 % ointmentIndicatio ns:Pressure ulcer of right hip, unstageable (CMS/HCC V24, CMS/HCC V28) Apply topically if needed for irritation. 56.7 g 1 06/10/20 25 025 Active Problems Problem Noted Date Diagnosed Date Adverse effect of antiepileptic 07/15/2025 Overview (07/15/2025): topiramate: @ 100 mg/day caused headache, balance changes. 09/2012-11/01/12 De Quervain's tenosynovitis 07/15/2025 Diffuse myofascial pain syndrome 07/15/2025 Drug-induced constipation 07/15/2025 Hypercholesterolemia 07/15/2025 Hypersomnia 07/15/2025 Overview (07/15/2025): [place] Sleepiness Scale score: 11 on 07/13/2012 Low back pain 07/15/2025 Knee pain 07/15/2025 Pressure injury of right hip , stage 3 ([facility] V24, [facility] V28) 06/25/2025 Pressure ulcer of right hip, unstageable ([facility] V24, [facility] V28) 06/10/2025 Pressure injury of right but tock, stage 3 ([facility] V24, [facility] V28) 05/21/2025 Non-STEMI (non-ST elevated m yocardial infarction) ([facility] V24, [facility] V28) 03/05/2025 Assessment & Plan (03/10/2025 2:18 PM EDT): Patient was recently hospitalized at [facility] as outlined in detailed above. She presented [...] (07/15/2025 1:31 PM EDT): Borderline personality disorder ([facility] V24, [facility] V28) 10/04/2017 Overview (09/27/2024): Follows with psychiatrist Dr. Gutierrez Depression, major, recurrent , severe with psychosis ([facility] V24, [facility] V28) 10/04/2017 Hypertension 10/04/2017 Assessment & Plan (03/10/2025 2:29 PM EDT): Patient is well pressure today 106/60. She continues to tolerate low-dose metoprolol. No changes to her present medical therapies. 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 Resolved Problems Problem Noted Date Diagnosed Date Resolved Date Chest pain 03/05/2025 03/10/2025 Encounters Date Type Department Care Team Description 08/08/2025 Telephone Gastroenterology - [address] [phone] Aminta Juares MD 08/06/2025 Telephone [facility] [address] [place] [phone] Mala Read RN 07/30/2025 11:15 AM EDT Office Visit [facility] W[facility] Care [address] [phone] Carlos Osorio PA Pressure injury of right hip, stage 3 (CMS/HCC V24, CMS/HCC V28) (Primary Dx) 07/25/2025 Results Follow-Up Gastroenterology - [address] [phone] Aminta Juares MD 07/24/2025 1:06 PM EDT Anesthesia Event [facility] Endoscopy [address] [place] [phone] Lori Stewart MD Vermes, Rachie, CRNA 07/24/2025 12:26 PM EDT - 07/24/2025 11:59 PM EDT Hospital Encounter [facility] Endoscopy [address] [place] [phone] Aminta Juares MD Vermes, Rachie, CRNA Kriz, Petra, MD Chronic idiopathic constipation; Rectal bleeding Discharge Disposition: Home or Self Care 07/16/2025 Telephone Gastroenterology - [address] [phone] Celina Lomeli MA 07/15/2025 2:15 PM EDT Office Visit [facility] [address] [place] [phone] Carlos Osorio PA Pressure injury of right hip, stage 3 (CMS/HCC V24, CMS/[facility] V28) (Primary Dx) 07/15/2025 1:45 PM EDT Lab Draw Station - [address] [phone] Anemia, unspecified (Primary Dx); Hypouricemia; Iron deficiency anemia, unspecified; Dysuria 07/15/2025 1:20 PM EDT Consult Gastroenterology - [address] [phone] Aminta Juares MD Chronic idiopathic constipation (Primary Dx); Rectal bleeding 07/15/2025 Telephone Gastroenterology - [address] [phone] Aminta Juares MD 07/14/2025 Telephone Gastroenterology - [address] [phone] Prasanth Soto MD 07/02/2025 2:45 PM EDT Office Visit [facility] [address] [place] [phone] Carlos Osorio PA Pressure injury of right hip, stage 3 ([facility] V24, [facility] V28) (Primary Dx) 06/25/2025 2:15 PM EDT Office Visit [facility] [address] [place] [phone] Carlos Osorio PA Pressure injury of right hip, stage 3 ([facility] V24, [facility] V28) (Primary Dx); Pressure ulcer of right hip, unstageable ([facility] V24, [facility] V28) 06/24/2025 4:26 PM EDT - 06/24/2025 11:59 PM EDT Hospital Encounter [facility] Xray [address] [place] [phone] Pressure ulcer of right hip, unstageable ([facility] V24, [facility] V28) Discharge Disposition: Home or Self Care 06/18/2025 2:45 PM EDT Office Visit [facility] [address] [place] [phone] Carlos Osorio PA Pressure ulcer of right hip, unstageable ([facility] V24, [facility] V28) (Primary Dx) 06/10/2025 2:00 PM EDT Office Visit [facility] [address] [place] [phone] Carlos Osorio PA Pressure ulcer of right hip, unstageable ([facility] V24, [facility] V28) (Primary Dx) from Last 3 Months Immunizations Immunization Administration Dates Next Due Influenza Quadrivalent, 0.5m l, preservative free (Fluarix; FluLaval; Fluzone) ages 6mo and older (Afluria) 3yo and older 08/14/2018 Influenza Whole 07/31/2008 Td Tetanus diptheria, preser vative free (Tenivac) 7yo and older 06/09/2013 Tdap Tetanus diptheria acell ular pertussis (Boostrix; Adacel) 7yo and older 03/30/2018 Surgical History Surgery Date Site/Laterality Comments OTHER SURGICAL HISTORY PROCEDURE: DENIES PREVIOUS SURGERY COLONOSCOPY 12/05/2017 PROCEDURE: HISTORICAL COLONOSCOPY; COMMENT: negative OTHER SURGICAL HISTORY PROCEDURE: HISTORY OTHER OTHER SURGICAL HISTORY PROCEDURE: NM BYP OTH/THN VEIN AXILLARY-AXILLARY OTHER SURGICAL HISTORY PROCEDURE: HISTORY OTHER; COMMENT: Third molar tooth extraction TONSILLECTOMY PROCEDURE: HISTORICAL TONSILLECTOMY COLONOSCOPY 07/24/2025 Normal Medical History Medical History Date Comments Depression, major, recurrent , severe with psychosis ([facility] V24, [facility] V28) 10/04/2017 DX:Depression, major, recurr ent, severe with psychosis ([facility]) 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 DX:Trichotillom shelli Hypertension 10/04/2017 DX:Hypertension RA (rheumatoid arthritis) ([facility] V24, [facility] V28) 10/04/2017 DX:RA (rheumatoid arthritis) ([facility]) MVP (mitral valve prolapse) 10/04/2017 DX:M COMMUNICATIONS ENGINEER (mitral valve prolapse) Borderline personality disor shiva ([facility] V24, [facility] V28) 10/04/2017 DX:Borderline personality d isorder ([facility]); COMMENT: Follows with psychiatrist Dr. Matt Reflex sympathetic dystrophy 10/04/2017 DX: Reflex sympathetic dystrophy; COMMENT: Complex regional pain syndrome, follows with neurology Iron deficiency anemia 10/10/2017 DX:Iron d eficiency anemia; COMMENT: ? Hemorrhoids Rectal bleeding 10/10/2017 DX:Rectal bleedi ng; COMMENT: Referred to GI Polypharmacy 10/10/2017 DX:Polypharmacy Neurodermatitis 10/04/2017 DX:Neurodermatit is; COMMENT: Follows with dermatology, used to follow with wound clinic Multiple open wounds DX:Multiple open wounds Hospitality Specialist's nodules DX:Hospitality Specialist's nod ules Insomnia DX:Insomnia Herpes zoster DX:Herpes zoster Chronic constipation DX:Chronic constipation Recurrent falls DX:Recurrent fal ls Myopia DX:Myopia Obsessive compulsive disorder DX :Obsessive compulsive disorder Osteoporosis DX:Osteoporosis Memory impairment DX:Memory impa irment Chronic anemia DX:Chronic anemi a Neuralgia DX:Neuralgia Self-mutilation DX:Self-mutilati on Environmental allergies DX:Envir onmental allergies Enlarged lymph node in neck DX:E nlarged lymph node in neck Chronic back pain DX:Chronic melvi k pain GERD (gastroesophageal reflux disease) DX:GERD (gastroesophageal reflux disease) Anxiety with depression DX:Anxie ty with depression Leukopenia DX:Leukopenia Hyponatremia DX:Hyponatremia Low T4 DX:Low T4 Generalized pain DX:Generalized pain Chronic GERD DX:Chronic GERD Shoulder pain, right DX:Shoulder pain, right Skin-picking disorder DX:Skin-pi cking disorder Arthralgia DX:Arthralgia Cough DX:Cough Fracture of finger DX:Fracture o f finger Hand pain DX:Hand pain Shoulder pain, left DX:Shoulder pain, left Thumb pain DX:Thumb pain Wrist pain, left DX:Wrist pain, left Hyperlipidemia Dementia (CMS/HCC V24, CMS/HCC V28) Neuropathic pain of lower extremity Posttraumatic stress disorder Alzheimer disease ([facility] V 24, [facility] V28) Hodgkin's lymphoma (CMS/HCC V24, CMS/HCC V28) Family History Medical History Relation Name Comments Other: Goiter Aunt Asthma Brother Arthritis Father Lung cancer Father Tobacco Glaucoma Mother Other: Atrial Fib Mother Diabetes, TIA, HTN Other: Osteoarthritis Mother Stroke Mother Depression Sister 1 Depression Sister 2 Relation Name Status Comments Aunt Brother Alive Father Mother Sister 1 Alive Sister 2 Alive Sister 3 Sister 4 Alive Social History Tobacco Use Types Packs/Day Years [...] on file Sexual Orientation Not on file Obstetrics History Last Filed Vital Signs Vital Sign Reading Time Taken Comments Blood Pressure 116/60 07/30/2025 11:34 AM EDT Pulse 84 07/30/2025 11:34 AM EDT Temperature 35.7 C (96.2 F) 07/30/2025 11:34 AM EDT Respiratory Rate 16 07/30/2025 11:34 AM EDT Oxygen Saturation 100% 07/30/2025 11:34 AM EDT Inhaled Oxygen Concentration - - Weight 58.5 kg (129 lb) 07/24/2025 12:55 PM EDT Height 167.6 cm (5' 6 ) 07/24/2025 12:55 PM EDT Body Mass Index 20.82 07/24/2025 12:55 PM EDT Plan of Treatment Upcoming Encounters Date Type Department Care Team (Late st Contact Info) Description 08/13/2025 2:00 PM EDT Clinical Support [facility] [address] [place] [phone] 09/01/2025 3:00 PM EST Office Visit [facility] [address] [place] [phone] Juan C-Obi Cabrera MD [address] [place] [address] [address] [place] [phone] Health Maintenance Due Date Last Done Comments Breast Cancer Screening 1955 Pneumococcal Vaccine: 50+ Years (1 of 1 - PCV) 2007 Zoster Vaccines (1 of 2) 2007 Hepatitis C Screening 09/20/2022 Osteoporosis Screening (Bone Density Screening) 09/20/2022 Social Influencers of Health Screening 09/20/2022 Cholesterol Screening (Lipid Panel) 10/10/2022 10/10/2017 Medicare Annual Wellness Visit 06/08/2024 06/08/2023 Depression Screening 10/23/2024 COVID-19 Vaccine (3 - 2024-2 6 season) 2025 11/24/2021, 11/03/2021 Influenza Vaccine (#1) 2025 8, 07/31/2008 Hypertension/CHF/CAD Annual BMP Blood Test 07/15/2026 07/15/2025, 10/10/2017 Falls Risk Assessment 07/24/2026 07/24/2025 DTaP,Tdap,and Td Vaccines (3 - Td or Tdap) 03/30/2028 03/30/2018, 06/09/2013 RSV Immunization Adult Patients (1 - 1-dose 75+ series) 2032 Colorectal Cancer Screening: Colonoscopy 07/24/2035 07/24/2025, 12/05/2017 HIB Vaccines Aged Out No longer eligi ble based on patient's age to complete this topic HPV Vaccines Aged Out No longer eligi ble based on patient's age to complete this topic Hepatitis A Vaccines Aged Out No long er eligible based on patient's age to complete this topic Hepatitis B Vaccines Aged Out No long er eligible based on patient's age to complete this topic IPV Vaccines Aged Out No longer eligi ble based on patient's age to complete this topic MMR Vaccines Aged Out No longer eligi ble based on patient's age to complete this topic Meningococcal ACWY Vaccine Aged Out N o longer eligible based on patient's age to complete this topic Meningococcal B Vaccine Aged Out No l onger eligible based on patient's age to complete this topic RSV Immunization Patients Under 20 months Aged Out No longer eligible b ased on patient's age to complete this topic Varicella Vaccines Aged Out No longer eligible based on patient's age to complete this topic Goals Goal Patient Goal Type Associated Problems [...] Care Plan Autogenerated Problem No Teena Herring Procedures Procedure Name Priority Date/Time Associated Diagnosis Comments CULTURE WOUND WITH GRAM STAIN Routine 07/30/2025 11:56 AM EDT Pressure injury of right hip, stage 3 (CMS/HCC V24, CMS/HCC V28) DEBRIDEMENT Routine 07/30/2025 11:15 AM EDT Pressure injury of right hip, stage 3 (CMS/HCC V24, CMS/HCC V28) FERRITIN Routine 07/24/2025 2:28 PM EDT Macrocytic anemia IRON AND TIBC Routine 07/24/2025 2:28 PM EDT Macrocytic anemia VITAMIN B12 AND FOLATE Routine 2:28 PM EDT Macrocytic anemia THYROID STIMULATING HORMONE WITH REFLEX TO FREE T4 AND FREE T3 Routine 07/24/2025 2:28 PM EDT Macrocytic anemia COLONOSCOPY Routine 07/24/2025 1:31 PM EDT Chronic idiopathic constipation Rectal bleeding URINALYSIS WITH REFLEX MICROSCOPIC Routine 07/15/2025 3:37 PM EDT Anemia, unspecified Hypouricemia Iron deficiency anemia, unspecified Dysuria URINALYSIS WITH REFLEX MICROSCOPIC Routine 07/15/2025 3:37 PM EDT Anemia, unspecified Hypouricemia Iron deficiency anemia, unspecified Dysuria DEBRIDEMENT Routine 07/15/2025 2:15 PM EDT Pressure injury of right hip, stage 3 (CMS/HCC V24, CMS/HCC V28) CBC WITH AUTO DIFFERENTIAL Routine 07/15/2025 1:50 PM EDT Anemia, unspecified Hypouricemia Iron deficiency anemia, unspecified Dysuria COMPREHENSIVE METABOLIC PANEL Routine 07/15/2025 1:50 PM EDT Anemia, unspecified Hypouricemia Iron deficiency anemia, unspecified Dysuria CBC AND DIFFERENTIAL Routine 07/15/2025 1:50 PM EDT Anemia, unspecified Hypouricemia Iron deficiency anemia, unspecified Dysuria DEBRIDEMENT Routine 07/02/2025 2:45 PM EDT Pressure injury of right hip, stage 3 (CMS/HCC V24, CMS/HCC V28) DEBRIDEMENT Routine 06/25/2025 2:15 PM EDT Pressure injury of right hip, stage 3 (CMS/HCC V24, CMS/HCC V28) XR HIP 2-3 VIEWS RIGHT Routine 4:41 PM EDT Pressure ulcer of right hip, unstageable (CMS/HCC V24, CMS/HCC V28) DEBRIDEMENT Routine 06/18/2025 2:45 PM EDT Pressure ulcer of right hip, unstageable (CMS/HCC V24, CMS/HCC V28) DEBRIDEMENT Routine 06/10/2025 2:00 PM EDT Pressure ulcer of right hip, unstageable (CMS/HCC V24, CMS/HCC V28) LIPID PANEL Routine 10/10/2017 from Last 3 Months or Most Recently Relevant to Health Maintenance Results * (ABNORMAL) Culture wound with gram stain (07/30/2025 11:56 AM EDT) Culture, Wound Escherichia coli(A) ARSLAN 08/02/2025 9:35 AM EDT [facility] Comment: The organism value for this result has been updated. These results have been appended to the previously preliminary verified report. This is an edited result. Previous organism was Gram negative bacilli on 07/31/2025 at 1128 EDT. Gram Stain Result Moderate Gram positive cocci in pairs(A) 08/02/2025 9:35 AM EDT [facility] Gram Stain Result Moderate Polymorphonuclear leukocytes(A) 08/02/2025 9:35 AM EDT [facility] Gram Stain Result No epithelial cells seen(A) 08/02/2025 9:35 AM EDT [facility] Swab Right hip region structure / Unknown Non-blood Collection / Unknown 07/30/2025 11:56 AM EDT 07/30/2025 4:09 PM EDT [facility] - 08/02/2025 9:35 AM EDT Mixed [...] Escherichia coli Trimethoprim/Sulfamethoxazole ARSLAN <=20 ug/ml: Susceptible Carlos MCKEON LAB MICROBIOLOGY - GENERAL ORDERABLES Final Result [facility] ([facility]) [facility] [address] [place] [address], * Debridement Pressure Injury Right Trochanter (07/30/2025 11:15 AM EDT) Carlos Ang MD - 07/30/2025 11:15 AM EDT Carlos [...] Response to treatment: Procedure was tolerated well Carlos MCKEON IN CLINIC/BEDSIDE ORDERABLE S Final Result * Thyroid stimulating hormone with reflex to free t4 and free t3 (07/24/2025 2:28 PM EDT) TSH 1.83 0.40 - 4.00 mcIU/mL LAB CHEMISTRY METHOD 07/24/2025 5:56 PM EDT [facility] Blood Venous blood specimen / Unknown Venipuncture / Unknown 07/24/2025 2:28 PM EDT 07/24/2025 3:21 PM EDT us Aminta Juares MD LAB BLOOD ORDERABLES Final Res ult Performing Organization Address [facility] de Phone Number [facility] [address] [place] [address], [place] [phone] * (ABNORMAL) Vitamin B12 and folate (07/24/2025 2:28 PM EDT) [facility] Vitamin B-12 1,559(H) 250 - 900 pcg/mL LAB CHEMISTRY METHOD 07/24/2025 4:54 PM EDT [facility] Folate >20.0(H) 2.8 - 17.0 ng/ml LAB CHEMISTRY METHOD 07/24/2025 4:54 PM EDT [facility] Blood Venous blood specimen / Unknown Venipuncture / Unknown 07/24/2025 2:28 PM EDT 07/24/2025 3:21 PM EDT us Aminta Juares MD LAB BLOOD ORDERABLES Final Res ult Performing Organization Address [facility]/ZIP Co de Phone Number [facility] [address] [place] [address], [place] [phone] * Iron and TIBC (07/24/2025 2:28 PM EDT) [facility] Iron 70 40 - 150 mcg/dL LAB CHEMISTRY METHOD 07/24/2025 4:54 PM EDT [facility] TIBC 318 250 - 450 mcg/dL LAB CHEMISTRY METHOD 07/24/2025 4:54 PM EDT [facility] Iron Saturation 22 15 - 50 % LAB CHEMISTRY METHOD 07/24/2025 4:54 PM EDT [facility] Blood Venous blood specimen / Unknown Venipuncture / Unknown 07/24/2025 2:28 PM EDT 07/24/2025 3:21 PM EDT us Aminta Juares MD LAB BLOOD ORDERABLES Final Res ult Performing Organization Address City/[facility]/ZIP Co de Phone Number [facility] [address] [place] [address], [place] [phone] * Ferritin (07/24/2025 2:28 PM EDT) Ferritin 107 8 - 252 ng/mL LAB CHEMISTRY METHOD 07/24/2025 4:54 PM EDT [facility] Blood Venous blood specimen / Unknown Venipuncture / Unknown 07/24/2025 2:28 PM EDT 07/24/2025 3:21 PM EDT us Aminta Juares MD LAB BLOOD ORDERABLES Final Res ult Performing Organization Address [facility] Co de Phone Number [facility] [address] [place] [address], [place] [phone] * COLONOSCOPY Anesthesia - MAC; [facility] ENDOSCOPY (07/24/2025 1:31 PM EDT) Anatomical Region Laterality Modality Endoscopy 07/24/2025 1:07 PM EDT Impressions 07/24/2025 1:32 PM EDT - The examined portion of the ileum was normal. - Internal hemorrhoids. - The entire examined colon is normal. - No specimens collected. Recommendation: - Repeat colonoscopy in 10 years for screening purposes. Narrative 07/24/2025 1:32 PM EDT [facility] GI Patient Name: Margie Zheng Procedure Date: 07/24/2025 1:07 PM Date of : 1955 Age: 70 Gender: Female Note Status: Finalized Attending MD: Aminta Juares MD, Procedure Date No Time: 07/24/2025 Procedure: Colonoscopy Indications: Rectal bleeding, Constipation Providers: Aminta Juares MD Referring MD: Lizy Allison Medicines: Propofol per Anesthesia Complications: No immediate complications. Estimated Blood Loss: Estimated blood loss: none. Procedure: Pre-Anesthesia Assessment: - ASA Grade Assessment: III - A patient with severe systemic disease. After I obtained informed consent, the scope was passed under direct vision. Throughout the procedure, the patient's blood pressure, pulse, and oxygen saturations were monitored continuously.The Colonoscope was introduced through the anus and advanced to the terminal ileum. The colonoscopy was performed without difficulty. The patient tolerated the procedure well. The quality of the bowel preparation was adequate. Findings: The perianal and digital rectal examinations were normal. The terminal ileum appeared normal. Internal hemorrhoids were found during retroflexion. The hemorrhoids were Grade I (internal hemorrhoids that do not prolapse). The entire examined colon appeared normal. Procedure Code(s): --- Professional --- 02315, Colonoscopy, flexible; diagnostic, including collection of specimen(s) by brushing or washing, when performed (separate procedure) Diagnosis Code(s): --- Professional --- K62.5, Hemorrhage of anus and rectum K59.00, Constipation, unspecified CPT copyright 2020 [employer]. All rights reserved. The codes documented in this report are preliminary and upon fishing manager review may be revised to meet current compliance requirements. Aminta Juares MD 07/24/2025 1:32:18 PM This report has been signed electronically.Aminta Juares MD Number of Addenda: 0 Note Initiated On: 07/24/2025 1:07 PM Scope In: Scope Out: Endoscopy Department at [facility] - [address] [place] [id number] Procedure Note Aminta Juares MD - 07/24/2025 [facility] GI Patient Name: Margie Zheng Procedure Date: 07/24/2025 1:07 PM Date of : 1955 Age: 70 Gender: Female Note Status: Finalized Attending MD: Aminta Juares MD, Procedure Date No Time: 07/24/2025 Procedure: Colonoscopy Indications: Rectal bleeding, Constipation Providers: Aminta Juares MD Referring MD: Lizy Allison Medicines: Propofol per Anesthesia Complications: No immediate complications. Estimated Blood Loss: Estimated blood loss: none. Procedure: Pre-Anesthesia Assessment: - ASA Grade Assessment: III - A patient with severe systemic disease. After I obtained informed consent, the scope was passed under direct vision. Throughout theprocedure, the patient's blood pressure, pulse, and oxygen saturations were monitored continuously.The Colonoscope was introduced through the anus and advanced to the terminal ileum. The colonoscopy was performed without difficulty. The patient tolerated the procedure well. The quality of the bowel preparation was adequate. Findings: The perianal and digital rectal examinations were normal. The terminal ileum appeared normal. Internal hemorrhoids were found duringretroflexion. The hemorrhoids were Grade I (internal hemorrhoids that do not prolapse). The entire examined colon appeared normal. Procedure Code(s): --- Professional --- 57957, Colonoscopy, flexible; diagnostic, including collection of specimen(s) by brushing or washing,when performed (separate procedure) Diagnosis Code(s): --- Professional --- K62.5, Hemorrhage of anus and rectum K59.00, Constipation, unspecified CPT copyright 2020 [employer]. All rights reserved. The codes documented in this report are preliminary and upon fishing manager reviewmay be revised to meet current compliance requirements. Aminta Juares MD 07/24/2025 1:32:18 PM This report has been signed electronically.Aminta Juares MD Number of Addenda: 0 Note Initiated On: 07/24/2025 1:07 PM Scope In: Scope Out: Endoscopy Department at [facility] - [address] [place] [phone] IMPRESSION: - The examined portion of the ileum was normal. - Internal hemorrhoids. - The entire examined colon is normal. - No specimens collected. Recommendation: - Repeat colonoscopy in 10 years for screening purposes. us Aminta Juares MD GI~PROCEDURE ORDERABLES Final Result * (ABNORMAL) Urinalysis with reflex microscopic (07/15/2025 3:37 PM EDT) Specific [place] Urine 1.019 1.003 - 1.030 LAB URINALYSIS - AUTOMATED METHOD 07/15/2025 4:16 PM [facility] pH, Urine 7.5 5.0 - 8.0 pH LAB URINALYSIS - AUTOMATED METHOD 07/15/2025 4:16 PM [facility] Leukocytes, Urine Large(A) Negative LAB URINALYSIS - AUTOMATED METHOD 07/15/2025 4:16 PM [facility] Nitrite, Urine Negative Negative LAB URINALYSIS - AUTOMATED METHOD 07/15/2025 4:16 PM [facility] Protein, Urine Trace <=Trace mg/dL LAB URINALYSIS - AUTOMATED METHOD 07/15/2025 4:16 PM [facility] Glucose, Urine Negative Negative mg/dL LAB URINALYSIS - AUTOMATED METHOD 07/15/2025 4:16 PM [facility] Ketones, Urine Trace(A) Negative mg/dL LAB URINALYSIS - AUTOMATED METHOD 07/15/2025 4:16 PM [facility] Urobilinogen, Urine 0.2 0.2 - 1.0 mg/dL LAB URINALYSIS - AUTOMATED METHOD 07/15/2025 4:16 PM [facility] Bilirubin, Urine Negative Negative LAB URINALYSIS - AUTOMATED METHOD 07/15/2025 4:16 PM [facility] Blood, Urine Negative Negative LAB URINALYSIS - AUTOMATED METHOD 07/15/2025 4:16 PM [facility] RBC, Urine 4.0 0 - 4 /HPF LAB URINALYSIS - AUTOMATED METHOD 07/15/2025 4:16 PM [facility] WBC, Urine 135.8(H) 0 - 4 /HPF LAB URINALYSIS - AUTOMATED METHOD 07/15/2025 4:16 PM [facility] Squamous Epithelial, Urine 4 0 - 60 /LPF LAB URINALYSIS - AUTOMATED METHOD 07/15/2025 4:16 PM EDT [facility] Bacteria, Urine Negative Negative /HPF LAB URINALYSIS - AUTOMATED METHOD 07/15/2025 4:16 PM EDT [facility] Hyaline Casts, Urine 8.4(H) 0 - 3 /LPF LAB URINALYSIS - AUTOMATED METHOD 07/15/2025 4:16 PM EDT [facility] Urine Urine specimen obtained by clean catch procedure / Unknown Non-blood Collection / Unknown 07/15/2025 3:37 PM EDT 07/15/2025 4:02 PM EDT us Jacqui Jaydon BURROWS LAB URINE ORDERABLES Final R esult [facility] [address] [place] [address], * Debridement Pressure Injury Right Trochanter (07/15/2025 2:15 PM EDT) Narrative Carlos Matt MD - 07/15/2025 2:15 PM EDT LINDA Perales 07/16/2025 7:35 AM Debridement Pressure Injury Right Trochanter Performed [...] of Tissue Post Debridement: Fat layer exposed Time taken: 07/15/2025 2:23 PM Length (cm): 0.9 Width (cm): 1.2 Depth (cm): 2.2 Area (cm^2): 1.08 Time taken: 07/15/2025 2:24 PM Length (cm): 0.9 Width (cm): 1.2 Depth (cm): 2.2 Percent Debrided (%): 75 Surface Area (cm^2): 1.08 Area Debrided (cm^2): 0.81 Volume (cm^3): 2.38 Tissue and other material debrided: subcutaneous tissue Devitalized tissue debrided: biofilm and slough Instrument: Curette Amount of bleeding: none Hemostasis obtained with: Not applicable Procedural pain: 0 Post-procedural pain: 0 Response to treatment: Procedure was tolerated well Carlos MCKEON IN CLINIC/BEDSIDE ORDERABLE S Final Result * (ABNORMAL) CBC auto differential (07/15/2025 1:50 PM EDT) WBC 6.3 4.8 - 10.8 K/mcL LAB HEMETOLOGY METHOD 07/15/2025 2:36 PM EDT [facility] RBC 3.30(L) 3.80 - 4.80 M/mcL LAB HEMETOLOGY METHOD 07/15/2025 2:36 PM EDT [facility] Hemoglobin 10.4(L) 11.5 - 16.0 g/dL LAB HEMETOLOGY [facility] Hematocrit 33.2(L) 35.0 - 47.0 % LAB HEMETOLOGY METHOD 07/15/2025 2:[facility] MCV 100.9(H) 79.0 - 98.0 FL LAB HEMETOLOGY METHOD 07/15/2025 2:36 PM EDT [facility] MCH 31.6 27.0 - 32.0 pcg LAB HEMETOLOGY METHOD 07/15/2025 2:36 PM [facility] MCHC 31.3(L) 32.0 - 37.0 g/dL LAB HEMETOLOGY METHOD 07/15/2025 2:36 PM [facility] RDW 13.4 11.0 - 15.0 % LAB HEMETOLOGY METHOD 07/15/2025 2:36 PM EDT [facility] Platelets 260 130 - 400 K/mcL LAB HEMETOLOGY METHOD 07/15/2025 2:36 PM EDT [facility] MPV 9.7 7.0 - 11.0 FL LAB HEMETOLOGY METHOD 07/15/2025 2:36 PM EDT [facility] NRBC 0.0 <1.0 % LAB HEMETOLOGY METHOD 07/15/2025 2:36 PM EDT [facility] NRBC Absolute 0.00 <0.10 K/mcL LAB HEMETOLOGY METHOD 07/15/2025 2:36 PM EDT [facility] Neutrophils Relative 70.7 % LAB HEMETOLOGY METHOD 07/15/2025 2:36 PM [facility] Lymphocytes Relative 19.5 % LAB HEMETOLOGY METHOD 07/15/2025 2:36 PM EDT [facility] Monocytes Relative 7.4 % LAB HEMETOLOGY METHOD 07/15/2025 2:36 PM EDT [facility] Eosinophils Relative 1.4 % LAB HEMETOLOGY METHOD 07/15/2025 2:36 PM [facility] Basophils Relative 0.5 % LAB HEMETOLOGY METHOD 07/15/2025 2:36 PM [facility] Immature Granulocytes Relative 0.5 % LAB HEMETOLOGY METHOD 07/15/2025 2:36 PM EDT [facility] Neutrophils Absolute 4.42 1.50 - 7.00 K/mcL LAB HEMETOLOGY METHOD 07/15/2025 2:36 PM EDT [facility] Lymphocytes Absolute 1.22 1.00 - 5.00 K/mcL LAB HEMETOLOGY METHOD 07/15[facility]2025 2:[facility] Monocytes Absolute 0.46 0.20 - 1.00 K/mcL LAB HEMETOLOGY METHOD 07/15/2025 2:36 PM EDT [facility] Eosinophils Absolute 0.09 0.00 - 0.50 K/mcL LAB HEMETOLOGY METHOD 07/15/2025 2:36 PM EDT [facility] Basophils Absolute 0.03 0.00 - 0.20 K/[facility] HEMETOLOGY METHOD 07/15/2025 2:36 PM EDT [facility] Immature Granulocytes Absolute 0.03 0.00 - 0.03 K/[facility] LAB HEMETOLOGY METHOD 07/15/2025 2:36 PM EDT [facility] Blood Venous blood specimen / Unknown Venipuncture / Unknown 07/15/2025 1:50 PM EDT 07/15/2025 2:28 PM EDT us Jacqui Jaydon BURROWS LAB BLOOD ORDERABLES Final R esult [facility] [address] [place] [address], * (ABNORMAL) Comprehensive metabolic panel (07/15/2025 1:50 PM EDT) Sodium 142 133 - 145 mmol/L LAB CHEMISTRY METHOD 07/15/2025 4:26 PM [facility] Potassium 3.8 3.5 - 5.5 mmol/L LAB CHEMISTRY METHOD 07/15/2025 4:26 PM [facility] Chloride 104 96 - 110 mmol/L LAB CHEMISTRY METHOD 07/15/2025 4:26 PM [facility] CO2 35(H) 21 - 32 mmol/L LAB CHEMISTRY METHOD 07/15/2025 4:26 PM [facility] Anion Gap 3 3 - 11 LAB CHEMISTRY METHOD 07/15/2025 4:26 PM [facility] Glucose 97 70 - 100 mg/dL LAB CHEMISTRY METHOD 07/15/2025 4:26 PM [facility] BUN 20 5 - 25 mg/dL LAB CHEMISTRY METHOD 07/15/2025 4:26 PM [facility] Creatinine 0.57 0.50 - 1.10 mg/dL LAB CHEMISTRY METHOD 07/15/2025 4:26 PM [facility] eGFR 99 >=60 mL/min/1. 73m2 LAB CHEMISTRY METHOD 07/15/2025 4:26 PM [facility] Comment:Calculation based on the Chronic Kidney Disease Epidemiology Collaboration (CKD-EPI) equation refit without adjustment for race. BUN/Creatinine Ratio 35.1 LAB CHEMISTRY METHOD 07/15/2025 4:26 PM [facility] Calcium 9.6 8.5 - 10.5 mg/dL LAB CHEMISTRY METHOD 07/15/2025 4:26 PM [facility] AST (SGOT) 30 10 - 42 unit/L LAB CHEMISTRY METHOD 07/15/2025 4:26 PM [facility] ALT (SGPT) 37 10 - 60 unit/L LAB CHEMISTRY METHOD 07/15/2025 4:26 PM [facility] Alkaline Phosphatase 83 42 - 121 unit/L LAB CHEMISTRY METHOD 07/15/2025 4:26 PM [facility] Total Protein 6.3 6.0 - 8.0 g/dL LAB CHEMISTRY METHOD 07/15/2025 4:26 PM [facility] Albumin 3.4 3.2 - 5.0 g/dL LAB CHEMISTRY METHOD 07/15/2025 4:26 PM [facility] Total Bilirubin 0.4 0.0 - 1.4 mg/dL LAB CHEMISTRY METHOD 07/15/2025 4:26 PM [facility] Blood Venous blood specimen / Unknown Venipuncture / Unknown 07/15/2025 1:50 PM EDT 07/15/2025 2:27 PM EDT Jacqui Interiano ASSOCIATE QUALITY ENGINEER LAB BLOOD ORDERABLES Final R esult [facility] ([facility]) [facility] [address] [place] [address], [place] [phone] * Debridement Pressure Injury Right Trochanter (07/02/2025 2:45 PM EDT) Carlos Ang MD - 07/02/2025 2:45 PM EDT LINDA Perales 07/02/2025 3:19 PM Debridement Pressure Injury Right Trochanter Performed by: [...] of Tissue Post Debridement: Fat layer exposed Time taken: 07/02/2025 2:47 PM Length (cm): 1.6 Width (cm): 1.4 Depth (cm): 1.6 Area (cm^2): 2.24 Time taken: 07/02/2025 2:48 PM Length (cm): 1.6 Width (cm): 1.4 Depth (cm): 1.6 Percent Debrided (%): 75 Surface Area (cm^2): 2.24 Area Debrided (cm^2): 1.68 Volume (cm^3): 3.58 Tissue and other material debrided: subcutaneous tissue Devitalized tissue debrided: biofilm and slough Instrument: Curette Amount of bleeding: none Hemostasis obtained with: Not applicable Procedural pain: 0 Post-procedural pain: 0 Response to treatment: Procedure was tolerated well Carlos MCKEON IN CLINIC/BEDSIDE ORDERABLE S Final Result * Debridement Pressure Injury Right Trochanter (06/25/2025 2:15 PM EDT) Carlos Ang MD - 06/25/2025 2:15 PM EDT LINDA Perales 06/25/2025 3:16 PM Debridement Pressure Injury Right Trochanter Performed by: [...] of Tissue Post Debridement: Fat layer exposed Time taken: 06/25/2025 2:29 PM Length (cm): 1.5 Width (cm): 1.7 Depth (cm): 1.4 Area (cm^2): 2.55 Time taken: 06/25/2025 2:30 PM Length (cm): 1.5 Width (cm): 1.7 Depth (cm): 1.4 Percent Debrided (%): 100 Surface Area (cm^2): 2.55 Area Debrided (cm^2): 2.55 Volume (cm^3): 3.57 Tissue and other material debrided: subcutaneous tissue Devitalized tissue debrided: biofilm and slough Instrument: Curette Amount of bleeding: none Hemostasis obtained with: Not applicable Procedural pain: 0 Post-procedural pain: 0 Response to treatment: Procedure was tolerated well us Carlos MCKEON IN CLINIC/BEDSIDE ORDERABLE S Final Result * XR Hip 2-3 Views Right (06/24/2025 4:41 PM EDT) Anatomical Region Laterality Modality Lower Extremities, Hip Right Radiograp hic Imaging 06/25/2025 8:37 AM EDT Impressions 06/25/2025 8:38 AM EDT No fracture, dislocation, or other acute findings. There is no radiographic evidence of osteomyelitis. 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 Please note that osteomyelitis cannot be excluded on the basis of radiography and, if there is clinical concern for osteomyelitis, further evaluation with radionuclide bone scan or with MRI should be considered. Code 49636 -------- FINAL REPORT -------- Dictated By: Nakul Pickard Dictated Date: 06/25/2025 08:37 ET Assigned Physician: Nakul Pickard Reviewed and Electronically Signed By: aNkul Pickard Signed Date: 06/25/2025 08:38 ET Workstation ID: [id number] Transcribed By: Self Edit Transcribed Date: 06/25/2025 08:37 ET Narrative 06/25/2025 8:38 AM EDT HISTORY: The patient is a 70-year-old female with a nonhealing ulcer overlying the right hip. FINDINGS: AP radiograph of the pelvis, along with coned-down AP and external rotation-abduction views of the right hip, are obtained. The study demonstrates no fracture, dislocation, or osteolytic or osteoblastic lesion. There is no bony erosion, cortical destruction, periosteal elevation, or other radiographic evidence of osteomyelitis. Small marginal osteophytes arise from the acetabula bilaterally consistent with mild osteoarthritis. There are soft tissue calcifications adjacent to greater tuberosities of the femurs bilaterally consistent with calcific tendinitis. There are degenerative changes of the included portion of the lower lumbar spine. Procedure Note Nakul Pickard MD - 06/25/2025 HISTORY: The patient is a 70-year-old female with a nonhealing ulceroverlying the right hip. FINDINGS: AP radiograph of the pelvis, along with coned-down AP andexternal rotation-abduction views of the right hip, are obtained. Thestudy demonstrates no fracture, dislocation, or osteolytic or osteoblasticlesion. There is no bony erosion, cortical destruction, periostealelevation, or other radiographic evidence of osteomyelitis. Small marginalosteophytes arise from the acetabula bilaterally consistent with mildosteoarthritis. There are soft tissue calcifications adjacent to greatertuberosities of the femurs bilaterally consistent with calcifictendinitis. There are degenerative changes of the included portion of thelower lumbar spine. IMPRESSION: No fracture, dislocation, or other acute findings. There is noradiographic evidence of osteomyelitis. There is mild osteoarthritis ofthe hips bilaterally. There is also evidence of calcific tendinitis ofboth hips. Please note that osteomyelitis cannot be excluded on the basis ofradiography and, if there is clinical concern for osteomyelitis, furtherevaluation with radionuclide bone scan or with MRI should be considered. Code 22548 -------- FINAL REPORT -------- Dictated By: Nakul Pickard Dictated Date: 06/25/2025 08:37 ET Assigned Physician: Nakul Pickard Reviewed and Electronically Signed By: Nakul Pickard Signed Date: 06/25/2025 08:38 ET Workstation ID: [id number] Transcribed By: Self Edit Transcribed Date: 06/25/2025 08:37 ET Carlos MCKEON IMG XR PROCEDURES Final Res ult * Debridement Pressure Injury Right Trochanter (06/18/2025 2:45 PM EDT) Narrative Carlos Matt MD - 06/18/2025 2:45 PM EDT LINDA Perales 06/19/2025 7:37 AM Debridement Pressure Injury Right Trochanter Performed [...] of Tissue Post Debridement: Fat layer exposed Time taken: 06/18/2025 3:01 PM Length (cm): 1.9 Width (cm): 2.2 Depth (cm): 0.9 Area (cm^2): 4.18 Time taken: 06/18/2025 3:02 PM Length (cm): 1.9 Width (cm): 2.2 Depth (cm): 0.9 Percent Debrided (%): 100 Surface Area (cm^2): 4.18 Area Debrided (cm^2): 4.18 Volume (cm^3): 3.76 Tissue and other material debrided: subcutaneous tissue Devitalized tissue debrided: biofilm, necrotic debris and slough Instrument: Blade and forceps Amount of bleeding: none Hemostasis obtained with: Not applicable Procedural pain: 0 Post-procedural pain: 0 Response to treatment: Procedure was tolerated well us Carlos MCKEON IN CLINIC/BEDSIDE ORDERABLE S Final Result * Debridement Pressure Injury Right Trochanter (06/10/2025 2:00 PM EDT) Narrative Carlos Matt MD - 06/10/2025 2:00 PM EDT LINDA Perales 06/10/2025 4:05 PM Debridement Pressure Injury Right Trochanter Performed by: [...] of Tissue Post Debridement: Fat layer exposed Time taken: 06/10/2025 2:40 PM Length (cm): 2.5 Width (cm): 2.4 Depth (cm): 1 Area (cm^2): 6 Time taken: 06/10/2025 2:41 PM Length (cm): 2.5 Width (cm): 2.4 Depth (cm): 1 Percent Debrided (%): 100 Surface Area (cm^2): 6 Area Debrided (cm^2): 6 Volume (cm^3): 6 Tissue and other material debrided: dermis, epidermis and subcutaneous tissue Devitalized tissue debrided: biofilm and slough Instrument: Curette Amount of bleeding: none Hemostasis obtained with: Not applicable Procedural pain: 0 Post-procedural pain: 0 Response to treatment: Procedure was tolerated well Carlos MCKEON IN CLINIC/BEDSIDE ORDERABLE S Final Result * (ABNORMAL) Lipid panel (10/10/2017) LDL/HDL Ratio 3 0 - 4 Triglycerides 207(A) 0 - 150 mg/dL Cholesterol 238(A) 0 - 200 mg/dL HDL 84 >=40 mg/dL LDL Cholesterol 113(A) 0 - 100 mg/dL Blood Venous blood specimen / Unknown Historical Provider LAB BLOOD ORDERABLES Niurka l Result from Last 3 Months or Most Recently Relevant to Health Maintenance Additional Health Concerns Active Problems Noted Date Diagnosed Date Impaired Tissue 06/10/2025 Education needed on impact of smoking on wound 0 06/10/2025 Education needed related to ulceration/compromised skin integrity. 06/10/2025 Autogenerated Problem 07/20/2025 Insurance MEDICARE MEDICAID - [place] Care Teams Fire Management Specialist Relationship Specialty Start Date End Date Lizy Allison MD [address] [id number] [place] [id number] PCP - General 02/17/21
== END 2025-08-08 12:58 | disposition home or self-care (01) ==
LOC: HO.HSM 11:42
PROVIDERS: Visit Provider Registered Nurse
DX: G30.9 Alzheimer's disease, unspecified (principal); F02.80 Dementia in other diseases classified elsewhere, unspecified severity, without behavioral disturbance, psychotic disturbance, mood disturbance, and anxiety; G62.9 Polyneuropathy, unspecified; R25.1 Tremor, unspecified
CPT/HCPCS: 99214

== ENCOUNTER → 2025-08-08 11:41 | Outpatient (BNVA) | payer MEDICARE, MEDICAID, SELFPAY | PROVIDERS: Visit Provider Registered Nurse | DX: G30.9 Alzheimer's disease, unspecified (principal); F02.80 Dementia in other diseases classified elsewhere, unspecified severity, without behavioral disturbance, psychotic disturbance, mood disturbance, and anxiety; G62.9 Polyneuropathy, unspecified; R25.1 Tremor, unspecified; Z79.899 Other long term (current) drug therapy | CPT/HCPCS: 99212 ==